=== PATIENT | male | born 1980 | race Caucasian/White ===

== ENCOUNTER 2016-05-26 02:17 | Inpatient (IN) | payer MEDICARE ==
[~2016-05-26] VITALS: Ht 177.8 cm; Wt 105.8 kg
[~2016-05-26 02:17] MED LIST: DIVA500T69 PO; HALO10 PO
[2016-05-26 02:55] LABS: BASOPHILS % (AUTO) 0.1 % (0.0-2.0); EOSINOPHILS % (AUTO) 1.2 % (1.0-6.0); HEMATOCRIT 40.8 % (41-53); HEMOGLOBIN 13.4 g/dL (13.5-17.5); LYMPHOCYTES # (AUTO) 1.7 K/uL (1.0-4.8); LYMPHOCYTES % (AUTO) 15.5 % (22.0-44.0); MEAN CORPUSCULAR HEMOGLOBIN 28.9 pg (26.0-34.0); MEAN CORPUSCULAR HGB CONC 32.9 G/dL (31.0-37.0); MEAN CORPUSCULAR VOLUME 88 fL (80-100); MONOCYTES # (AUTO) 0.9 K/uL (0.1-1.0); MONOCYTES % (AUTO) 8.2 % (2.0-9.0); NEUTROPHILS # (AUTO) 8.1 K/uL (1.8-7.7); PLATELET COUNT (AUTO) 258 K/uL (150-450); RED BLOOD CELL COUNT(AUTO) 4.64 MIL/uL (4.50-5.90); RED CELL DISTRIBUTION WIDTH 15.9 % (11.5-14.5); WHITE BLOOD COUNT (AUTO) 10.8 K/uL (4.5-11.0)
[2016-05-26 03:01] LABS: ANION GAP 10 mmol/L (8-16); CALCIUM, TOTAL 8.5 mg/dL (8.8-10.5); CARBON DIOXIDE 27 mmol/L (22-29); CHLORIDE 105 mmol/L (98-107); CREATININE 0.98 mg/dL (0.60-1.30); GLOMERULAR FILTR. RATE CALC > 60 mL/min (>60); POTASSIUM 3.6 mmol/L (3.5-5.1); SODIUM SERUM 142 mmol/L (136-145); UREA NITROGEN, BLOOD 16 mg/dL (7-18)
[2016-05-26 03:07] LABS: ALANINE AMINOTRANSFERASE 14 U/L (12-78); ALBUMIN 3.6 g/dL (3.4-5.0); ASPARTATE AMINOTRANSFERASE 11 U/L (15-37); BILIRUBIN,TOTAL 0.2 mg/dL (0.1-1.0); TOTAL PROTEIN, SERUM 7.2 g/dL (6.4-8.2); VALPROIC ACID 73 mcg/mL (50-100)
[2016-05-26] MEDS ORDERED: LORazepam 2 MG/ML VIAL ONE (04:56)
[2016-05-26] MEDS ORDERED: DiphenhydrAMINE HCL 50 MG/ML VIAL ONE (04:57)
[2016-05-26] MEDS ORDERED: HALOPERIDOL LACTATE 5 MG/ML VIAL ONE (04:58)
[2016-05-26] MEDS ORDERED: HALOPERIDOL LACTATE 5 MG/ML VIAL IM ONE (05:00)
[2016-05-26] MEDS ORDERED: LORazepam 2 MG/ML VIAL IM ONE (05:00)
[2016-05-26] MEDS ORDERED: DiphenhydrAMINE HCL 50 MG/ML VIAL IM ONE (05:00)
[2016-05-26] MEDS ORDERED: ZOLPIDEM TARTRATE 10 MG TABLET PO PRN (06:45)
[2016-05-26] MEDS ORDERED: HALOPERIDOL 5 MG TABLET PO PRN (06:45)
[2016-05-26 10:52] LABS: APPEARANCE,URINE HAZY (CLEAR); GLUCOSE, URINE (UA) NEGATIVE (NEGATIVE); KETONES,URINE NEGATIVE (NEGATIVE); OCCULT BLOOD,URINE NEGATIVE (NEGATIVE); PROTEIN,URINE NEGATIVE (NEGATIVE)
[2016-05-26 10:53] LABS: ADD UA MICROSCOPIC YES; LEUKOCYTE ESTERASE ,URINE SMALL (NEGATIVE); RBC,URINE None Seen /HPF (0-2)
[2016-05-26 10:54] LABS: SQUAMOUS EPITHELIAL CELL,UR Few /LPF (None Seen)
[2016-05-26 13:13] VITALS: BP 110/70
[2016-05-26] MEDS ORDERED: INFLUENZA VIRUS VACCINE QVS 2016-17 (3YR+)/PF 60 MCG/0.5 ML SYRINGE IM ONE (14:45)
[2016-05-26 16:45] VITALS: BP 103/63
[2016-05-27 06:35] VITALS: BP 109/69
[2016-05-27 08:47] VITALS: BP 106/61
[2016-05-27] MEDS ORDERED: LOPERAMIDE HCL 2 MG CAPSULE PO PRN (09:00)
[2016-05-27] MEDS ORDERED: ONDANSETRON HCL 4 MG TABLET PO PRN (09:00)
[2016-05-27] MEDS ORDERED: ACETAMINOPHEN 325 MG TABLET PO PRN (09:00)
[2016-05-27] MEDS ORDERED: BENZOCAINE/MENTHOL LOZENGE MM PRN (09:00)
[2016-05-27] MEDS ORDERED: ALBUTEROL SULFATE HFA 90 MCG/PUFF 8 GM INHALER IH PRN (09:00)
[2016-05-27] MEDS ORDERED: MAGNESIUM HYDROXIDE SUSPENSION 30 ML UDCUP PO PRN (09:00)
[2016-05-27] MEDS ORDERED: CloNIDine HCL 0.1 MG TABLET PO PRN (09:00)
[2016-05-27] MEDS ORDERED: PETROLATUM,WHITE 71 GM JELLY TP PRN (09:00)
[2016-05-27] MEDS ORDERED: MAG HYDROX/AL HYDROX/SIMETH ES 30 ML SUSPENSION UDCUP PO PRN (09:00)
[2016-05-27] MEDS ORDERED: BACITRACIN 28.4 GM OINTMENT TP PRN (09:00)
[2016-05-27] MEDS ORDERED: IBUPROFEN 600 MG TABLET PO PRN (09:00)
[2016-05-27] MEDS: CHOLECALCIFEROL (VIT D3) 1,000 UNITS TABLET PO SCH (09:20)
[2016-05-27] MEDS: BENZTROPINE MESYLATE 0.5 MG TABLET PO SCH ×2 (09:20→17:07)
[2016-05-27] MEDS: HALOPERIDOL 5 MG TABLET PO SCH ×2 (09:20→17:07)
[2016-05-27] MEDS: CIPROFLOXACIN HCL 250 MG TABLET PO SCH ×2 (15:54→17:07)
[2016-05-27 16:13] VITALS: BP 117/68
[2016-05-27] MEDS: LORazepam 2 MG TABLET PO PRN (16:26)
[2016-05-28 06:33] VITALS: BP 105/60
[2016-05-28 08:33] VITALS: BP 115/66
[2016-05-28] MEDS: CHOLECALCIFEROL (VIT D3) 1,000 UNITS TABLET PO SCH (09:02)
[2016-05-28] MEDS: CIPROFLOXACIN HCL 250 MG TABLET PO SCH ×2 (09:02→17:02)
[2016-05-28] MEDS: HALOPERIDOL 5 MG TABLET PO SCH ×2 (09:02→17:02)
[2016-05-28] MEDS: BENZTROPINE MESYLATE 0.5 MG TABLET PO SCH ×2 (09:03→17:02)
[2016-05-28 16:22] VITALS: BP 127/79
[2016-05-28] MEDS: LORazepam 2 MG TABLET PO PRN (17:02)
[2016-05-29 05:59] VITALS: BP 119/70
[2016-05-29 08:54] VITALS: BP 118/74
[2016-05-29] MEDS: BENZTROPINE MESYLATE 0.5 MG TABLET PO SCH ×2 (11:26→16:12)
[2016-05-29] MEDS: CHOLECALCIFEROL (VIT D3) 1,000 UNITS TABLET PO SCH (11:26)
[2016-05-29] MEDS: LORazepam 2 MG TABLET PO PRN ×2 (11:27→16:12)
[2016-05-29] MEDS: CIPROFLOXACIN HCL 250 MG TABLET PO SCH ×2 (11:27→16:12)
[2016-05-29] MEDS: HALOPERIDOL 5 MG TABLET PO SCH ×2 (11:27→16:12)
[2016-05-29 16:00] VITALS: BP 135/70
[2016-05-30 07:13] VITALS: BP 134/75
[2016-05-30] MEDS: HALOPERIDOL 5 MG TABLET PO SCH ×2 (08:24→17:27)
[2016-05-30] MEDS: BENZTROPINE MESYLATE 0.5 MG TABLET PO SCH ×2 (08:24→17:26)
[2016-05-30] MEDS: CHOLECALCIFEROL (VIT D3) 1,000 UNITS TABLET PO SCH (08:24)
[2016-05-30] MEDS: LORazepam 2 MG TABLET PO PRN ×2 (08:24→17:27)
[2016-05-30 09:15] VITALS: BP 111/60
[2016-05-30] MEDS ORDERED: HALOPERIDOL DECANOATE 50 MG/ML VIAL IM ONE (15:15)
[2016-05-30] MEDS ORDERED: HydrOXYzine PAMOATE 50 MG CAPSULE PO PRN (15:15)
[2016-05-30] MEDS ORDERED: GuaiFENesin/D-METHORPHAN [SUGAR-FREE] 200-20MG/10 ML SYRUP UDCUP PO PRN (15:15)
[2016-05-30 16:17] VITALS: BP 116/79
[2016-05-30] MEDS: THIAMINE HCL 100 MG TABLET PO SCH (17:26)
[2016-05-30] MEDS: DIVALPROEX SODIUM 500 MG ER TABLET PO SCH (21:11)
[2016-05-31 06:30] VITALS: BP 121/83
[2016-05-31 08:34] VITALS: BP 105/87
[2016-05-31] MEDS: HALOPERIDOL 5 MG TABLET PO SCH ×2 (09:35→17:00)
[2016-05-31] MEDS: FOLIC ACID 1 MG TABLET PO SCH (09:35)
[2016-05-31] MEDS: BENZTROPINE MESYLATE 0.5 MG TABLET PO SCH ×2 (09:35→17:00)
[2016-05-31] MEDS: THIAMINE HCL 100 MG TABLET PO SCH ×2 (09:35→17:00)
[2016-05-31] MEDS: MULTIVITAMINS WITH MINERALS, THERAPEUTIC TABLET PO SCH (09:35)
[2016-05-31] MEDS: LORazepam 2 MG TABLET PO PRN ×2 (09:35→17:00)
[2016-05-31] MEDS: CHOLECALCIFEROL (VIT D3) 1,000 UNITS TABLET PO SCH (09:36)
[2016-05-31 16:00] VITALS: BP 132/82
[2016-05-31] MEDS: DIVALPROEX SODIUM 500 MG ER TABLET PO SCH (20:47)
[2016-06-01 06:13] VITALS: BP 122/76
[2016-06-01 08:26] VITALS: BP 135/76
[2016-06-01] MEDS: BENZTROPINE MESYLATE 0.5 MG TABLET PO SCH ×2 (08:30→16:25)
[2016-06-01] MEDS: HALOPERIDOL 5 MG TABLET PO SCH ×2 (08:30→16:25)
[2016-06-01] MEDS: MULTIVITAMINS WITH MINERALS, THERAPEUTIC TABLET PO SCH (08:30)
[2016-06-01] MEDS: LORazepam 2 MG TABLET PO PRN (08:30)
[2016-06-01] MEDS: CHOLECALCIFEROL (VIT D3) 1,000 UNITS TABLET PO SCH (08:30)
[2016-06-01] MEDS: FOLIC ACID 1 MG TABLET PO SCH (08:30)
[2016-06-01] MEDS: THIAMINE HCL 100 MG TABLET PO SCH ×2 (08:30→16:25)
[2016-06-01] MEDS ORDERED: DIVA500T52 PO (13:23)
[2016-06-01] MEDS ORDERED: HALOD50I IM ×2 (13:23→16:06)
[2016-06-01] MEDS ORDERED: HALO5 PO ×2 (13:23→16:01)
[2016-06-01] MEDS ORDERED: BENZ0.5T6 PO ×2 (13:23→16:02)
[2016-06-13] MEDS ORDERED: HALOPERIDOL DECANOATE 50 MG/ML VIAL IM SCH (09:00)
== END 2016-06-01 16:30 | disposition home or self-care (01) | DRG 885 ==
LOC: EMS 02:27 → B3A 10:19
PROVIDERS: ADMIT Psychiatry & Neurology Child & Adolescent Psychiatry; ATTEND Psychiatry & Neurology Psychiatry
PROC: GZ51ZZZ Individual Psychotherapy, Behavioral (ICD-10-PCS; principal; 2016-05-26)
DX: F25.9 Schizoaffective disorder, unspecified (principal); N39.0 Urinary tract infection, site not specified; R45.851 Suicidal ideations; E66.9 Obesity, unspecified; F17.210 Nicotine dependence, cigarettes, uncomplicated; F32.9 Major depressive disorder, single episode, unspecified; G47.00 Insomnia, unspecified; I10 Essential (primary) hypertension; F12.90 Cannabis use, unspecified, uncomplicated; F15.90 Other stimulant use, unspecified, uncomplicated; Z59.0 Homelessness; Z91.5 Personal history of self-harm; Z71.6 Tobacco abuse counseling; Z28.21 Immunization not carried out because of patient refusal; Z79.899 Other long term (current) drug therapy; Z68.33 Body mass index [BMI] 33.0-33.9, adult
CPT/HCPCS: 87086; 96372; 99285; G0480; J1200; J1630; J1631; J2060

== ENCOUNTER 2016-06-02 18:38 | Inpatient (IN) | payer MEDICARE ==
[~2016-06-02] VITALS: Ht 175.3 cm; Wt 104.0 kg
[~2016-06-02 18:38] MED LIST changes: +BENZ0.5T6 PO; +DIVA500T52 PO; -HALO10 PO; +HALO5 PO; +HALOD50I IM
[2016-06-02 19:50] LABS: BASOPHILS % (AUTO) 0.3 % (0.0-2.0); EOSINOPHILS % (AUTO) 1.1 % (1.0-6.0); HEMATOCRIT 41.9 % (41-53); HEMOGLOBIN 13.6 g/dL (13.5-17.5); LYMPHOCYTES % (AUTO) 15.3 % (22.0-44.0); MEAN CORPUSCULAR HGB CONC 32.5 G/dL (31.0-37.0); MEAN CORPUSCULAR VOLUME 89 fL (80-100); MONOCYTES # (AUTO) 1.3 K/uL (0.1-1.0); MONOCYTES % (AUTO) 10.5 % (2.0-9.0); NEUTROPHILS # (AUTO) 9.3 K/uL (1.8-7.7); NEUTROPHILS % (AUTO) 72.8 % (40.0-70.0); PLATELET COUNT (AUTO) 259 K/uL (150-450); RED CELL DISTRIBUTION WIDTH 15.6 % (11.5-14.5); WHITE BLOOD COUNT (AUTO) 12.7 K/uL (4.5-11.0)
[2016-06-02 19:59] LABS: ANION GAP 9 mmol/L (8-16); CALCIUM, TOTAL 8.1 mg/dL (8.8-10.5); CARBON DIOXIDE 29 mmol/L (22-29); CHLORIDE 101 mmol/L (98-107); CREATININE 0.95 mg/dL (0.60-1.30); GLOMERULAR FILTR. RATE CALC > 60 mL/min (>60); POTASSIUM 3.8 mmol/L (3.5-5.1); SODIUM SERUM 139 mmol/L (136-145); UREA NITROGEN, BLOOD 13 mg/dL (7-18)
[2016-06-02 20:08] LABS: ALANINE AMINOTRANSFERASE 18 U/L (12-78); ALBUMIN 3.9 g/dL (3.4-5.0); ASPARTATE AMINOTRANSFERASE 14 U/L (15-37); BILIRUBIN,TOTAL 0.6 mg/dL (0.1-1.0); TOTAL PROTEIN, SERUM 7.6 g/dL (6.4-8.2); VALPROIC ACID 35 mcg/mL (50-100)
[2016-06-02] MEDS ORDERED: ZOLPIDEM TARTRATE 10 MG TABLET PO PRN (21:00)
[2016-06-02] MEDS ORDERED: HALOPERIDOL 5 MG TABLET PO PRN (21:00)
[2016-06-02] MEDS ORDERED: LORazepam 2 MG/ML VIAL ONE (21:11)
[2016-06-02] MEDS ORDERED: HALOPERIDOL LACTATE 5 MG/ML VIAL ONE (21:11)
[2016-06-02] MEDS ORDERED: DiphenhydrAMINE HCL 50 MG/ML VIAL ONE (21:11)
[2016-06-02] MEDS ORDERED: LORazepam 2 MG/ML VIAL IM ONE (21:15)
[2016-06-02] MEDS ORDERED: HALOPERIDOL LACTATE 5 MG/ML VIAL IM ONE (21:15)
[2016-06-02] MEDS ORDERED: DiphenhydrAMINE HCL 50 MG/ML VIAL IM ONE (21:15)
[2016-06-03 00:05] VITALS: BP 102/64
[2016-06-03] MEDS ORDERED: INFLUENZA VIRUS VACCINE QVS 2016-17 (3YR+)/PF 60 MCG/0.5 ML SYRINGE IM ONE (00:30)
[2016-06-03 08:30] VITALS: BP 105/65
[2016-06-03] MEDS ORDERED: MAG HYDROX/AL HYDROX/SIMETH ES 30 ML SUSPENSION UDCUP PO PRN (15:00)
[2016-06-03] MEDS ORDERED: LOPERAMIDE HCL 2 MG CAPSULE PO PRN (15:00)
[2016-06-03] MEDS ORDERED: BACITRACIN 28.4 GM OINTMENT TP PRN (15:00)
[2016-06-03] MEDS ORDERED: MAGNESIUM HYDROXIDE SUSPENSION 30 ML UDCUP PO PRN (15:00)
[2016-06-03] MEDS ORDERED: ONDANSETRON HCL 4 MG TABLET PO PRN (15:00)
[2016-06-03] MEDS ORDERED: BENZOCAINE/MENTHOL LOZENGE MM PRN (15:00)
[2016-06-03] MEDS ORDERED: PETROLATUM,WHITE 71 GM JELLY TP PRN (15:00)
[2016-06-03] MEDS ORDERED: IBUPROFEN 600 MG TABLET PO PRN (15:00)
[2016-06-03] MEDS ORDERED: ALBUTEROL SULFATE HFA 90 MCG/PUFF 8 GM INHALER IH PRN (15:00)
[2016-06-03] MEDS ORDERED: ACETAMINOPHEN 325 MG TABLET PO PRN (15:00)
[2016-06-03] MEDS ORDERED: CloNIDine HCL 0.1 MG TABLET PO PRN (15:00)
[2016-06-03 16:00] VITALS: BP 112/70
[2016-06-03] MEDS: LORazepam 2 MG TABLET PO PRN (17:16)
[2016-06-03] MEDS: BENZTROPINE MESYLATE 0.5 MG TABLET PO SCH (17:16)
[2016-06-03] MEDS: HALOPERIDOL 5 MG TABLET PO SCH (17:16)
[2016-06-03] MEDS: DIVALPROEX SODIUM 500 MG ER TABLET PO SCH (20:44)
[2016-06-04 06:36] VITALS: BP 110/68
[2016-06-04 08:39] VITALS: BP 105/65
[2016-06-04] MEDS: LORazepam 2 MG TABLET PO PRN ×2 (09:18→17:04)
[2016-06-04] MEDS: HALOPERIDOL 5 MG TABLET PO SCH ×2 (09:18→17:04)
[2016-06-04] MEDS: BENZTROPINE MESYLATE 0.5 MG TABLET PO SCH ×2 (09:18→17:04)
[2016-06-04 16:20] VITALS: BP 110/68
[2016-06-04] MEDS: DIVALPROEX SODIUM 500 MG ER TABLET PO SCH (21:23)
[2016-06-05 06:35] VITALS: BP 120/67
[2016-06-05] MEDS: BENZTROPINE MESYLATE 0.5 MG TABLET PO SCH ×2 (09:04→17:43)
[2016-06-05] MEDS: HALOPERIDOL 5 MG TABLET PO SCH ×2 (09:04→17:43)
[2016-06-05] MEDS: LORazepam 2 MG TABLET PO PRN ×2 (09:04→17:44)
[2016-06-05 09:46] VITALS: BP 105/62
[2016-06-05] MEDS ORDERED: HydrOXYzine PAMOATE 50 MG CAPSULE PO PRN (10:45)
[2016-06-05] MEDS ORDERED: GuaiFENesin/D-METHORPHAN [SUGAR-FREE] 200-20MG/10 ML SYRUP UDCUP PO PRN (10:45)
[2016-06-05 16:34] VITALS: BP 116/69
[2016-06-05] MEDS: THIAMINE HCL 100 MG TABLET PO SCH (17:44)
[2016-06-05] MEDS: DIVALPROEX SODIUM 500 MG ER TABLET PO SCH (22:10)
[2016-06-06 06:21] VITALS: BP 110/58
[2016-06-06] MEDS: FOLIC ACID 1 MG TABLET PO SCH (08:51)
[2016-06-06] MEDS: MULTIVITAMINS WITH MINERALS, THERAPEUTIC TABLET PO SCH (08:51)
[2016-06-06] MEDS: BENZTROPINE MESYLATE 0.5 MG TABLET PO SCH ×2 (08:52→16:46)
[2016-06-06] MEDS: HALOPERIDOL 5 MG TABLET PO SCH ×2 (08:52→16:46)
[2016-06-06] MEDS: THIAMINE HCL 100 MG TABLET PO SCH ×2 (08:52→16:46)
[2016-06-06 09:36] VITALS: BP 101/63
[2016-06-06] MEDS ORDERED: DIVA500T52 PO (16:01)
[2016-06-06] MEDS ORDERED: BENZ0.5T6 PO (16:01)
[2016-06-06] MEDS ORDERED: HALOD50I IM (16:01)
[2016-06-06] MEDS ORDERED: HALO5 PO (16:01)
[2016-06-06 16:07] VITALS: BP 122/74
[2016-06-06] MEDS: DIVALPROEX SODIUM 500 MG ER TABLET PO SCH (20:27)
[2016-06-07 07:03] VITALS: BP 108/72
[2016-06-07 08:20] VITALS: BP 121/70
[2016-06-07] MEDS: FOLIC ACID 1 MG TABLET PO SCH (09:59)
[2016-06-07] MEDS: THIAMINE HCL 100 MG TABLET PO SCH (09:59)
[2016-06-07] MEDS: HALOPERIDOL 5 MG TABLET PO SCH (09:59)
[2016-06-07] MEDS: MULTIVITAMINS WITH MINERALS, THERAPEUTIC TABLET PO SCH (09:59)
[2016-06-07] MEDS: BENZTROPINE MESYLATE 0.5 MG TABLET PO SCH (09:59)
[2016-06-07] MEDS ORDERED: NALT50 PO (10:20)
[2016-06-08] MEDS ORDERED: NALTREXONE HCL 50 MG TABLET PO SCH (09:00)
[2016-06-13] MEDS ORDERED: HALOPERIDOL DECANOATE 50 MG/ML VIAL IM SCH (09:00)
== END 2016-06-07 13:35 | disposition home or self-care (01) | DRG 885 ==
LOC: EMS 18:52 → B3A 21:15
PROVIDERS: ADMIT Psychiatry & Neurology Child & Adolescent Psychiatry; ATTEND Psychiatry & Neurology Psychiatry
PROC: GZ51ZZZ Individual Psychotherapy, Behavioral (ICD-10-PCS; principal; 2016-06-02)
DX: F25.1 Schizoaffective disorder, depressive type (principal); I10 Essential (primary) hypertension; G47.00 Insomnia, unspecified; K59.00 Constipation, unspecified; E55.9 Vitamin D deficiency, unspecified; F19.10 Other psychoactive substance abuse, uncomplicated; F14.10 Cocaine abuse, uncomplicated; F15.10 Other stimulant abuse, uncomplicated; F17.210 Nicotine dependence, cigarettes, uncomplicated; Z71.6 Tobacco abuse counseling; Z79.899 Other long term (current) drug therapy; Z28.21 Immunization not carried out because of patient refusal
CPT/HCPCS: 80173; 82306; 87081; 96372; 99285; G0480; J1200; J1630; J2060

== ENCOUNTER 2016-12-09 05:28 | Inpatient (IN) | payer MEDICARE ==
[~2016-12-09] VITALS: Ht 175.3 cm; Wt 108.9 kg
[~2016-12-09 05:28] MED LIST changes: -DIVA500T69 PO; +NALT50TA6 PO
[2016-12-09] MEDS ORDERED: OLAN10TA3 PO (05:42)
[2016-12-09 06:13] LABS: BASOPHILS # (AUTO) 0.02 K/uL (0.00-0.20); BASOPHILS % (AUTO) 0.2 % (0.0-2.0); EOSINOPHILS # (AUTO) 0.07 K/uL (0.00-0.70); EOSINOPHILS % (AUTO) 0.44 % (1.0-6.0); HEMATOCRIT 38.4 % (41-53); LYMPHOCYTES # (AUTO) 1.4 K/uL (1.0-4.8); LYMPHOCYTES % (AUTO) 9.4 % (22.0-44.0); MEAN CORPUSCULAR HEMOGLOBIN 30.3 pg (26.0-34.0); MEAN CORPUSCULAR HGB CONC 33.9 G/dL (31.0-37.0); MEAN CORPUSCULAR VOLUME 89 fL (80-100); MONOCYTES # (AUTO) 1.5 K/uL (0.1-1.0); MONOCYTES % (AUTO) 9.9 % (2.0-9.0); NEUTROPHILS # (AUTO) 12.2 K/uL (1.8-7.7); NEUTROPHILS % (AUTO) 80.1 % (40.0-70.0); PLATELET COUNT (AUTO) 233 K/uL (150-450); RED CELL DISTRIBUTION WIDTH 13.8 % (11.5-14.5); WHITE BLOOD COUNT (AUTO) 15.3 K/uL (4.5-11.0)
[2016-12-09 06:22] LABS: ANION GAP 10 mmol/L (8-16); CALCIUM, TOTAL 8.9 mg/dL (8.8-10.5); CARBON DIOXIDE 27 mmol/L (22-29); CHLORIDE 104 mmol/L (98-107); CREATININE 0.92 mg/dL (0.60-1.30); GLOMERULAR FILTR. RATE CALC > 60 mL/min (>60); POTASSIUM 3.9 mmol/L (3.5-5.1); SODIUM SERUM 141 mmol/L (136-145); UREA NITROGEN, BLOOD 17 mg/dL (7-18)
[2016-12-09 06:28] LABS: ALANINE AMINOTRANSFERASE 20 U/L (12-78); ALBUMIN 3.9 g/dL (3.4-5.0); ASPARTATE AMINOTRANSFERASE 23 U/L (15-37); BILIRUBIN,TOTAL 0.6 mg/dL (0.1-1.0); TOTAL PROTEIN, SERUM 7.7 g/dL (6.4-8.2)
[2016-12-09] MEDS ORDERED: LORazepam 2 MG TABLET PO ONE (12:00)
[2016-12-09] MEDS ORDERED: HALOPERIDOL LACTATE 5 MG/ML VIAL IM ONE (12:00)
[2016-12-09] MEDS ORDERED: HALOPERIDOL 5 MG TABLET PO PRN (12:00)
[2016-12-09] MEDS ORDERED: ZOLPIDEM TARTRATE 10 MG TABLET PO PRN (12:00)
[2016-12-09] MEDS ORDERED: HALOPERIDOL 5 MG TABLET PO ONE (12:15)
[2016-12-09] MEDS: BENZTROPINE MESYLATE 0.5 MG TABLET PO SCH (21:00)
[2016-12-09] MEDS: HALOPERIDOL 5 MG TABLET PO SCH (21:00)
[2016-12-10] MEDS: DIVALPROEX SODIUM 500 MG ER TABLET PO SCH ×2 (07:19→21:07)
[2016-12-10] MEDS: BENZTROPINE MESYLATE 0.5 MG TABLET PO SCH ×2 (08:14→21:07)
[2016-12-10] MEDS: HALOPERIDOL 5 MG TABLET PO SCH ×2 (08:15→21:07)
[2016-12-10 22:20] VITALS: BP 129/81
[2016-12-11] MEDS ORDERED: -PHARMACY VACCINE NOTE- MISC ONE ×2 (02:00)
[2016-12-11 06:46] VITALS: BP 114/66
[2016-12-11 08:18] VITALS: BP 100/58
[2016-12-11] MEDS ORDERED: MAGNESIUM HYDROXIDE SUSPENSION 30 ML UDCUP PO PRN (09:30)
[2016-12-11] MEDS ORDERED: CloNIDine HCL 0.1 MG TABLET PO PRN (09:30)
[2016-12-11] MEDS ORDERED: ALBUTEROL SULFATE HFA 90 MCG/PUFF 8 GM INHALER IH PRN (09:30)
[2016-12-11] MEDS ORDERED: ACETAMINOPHEN 325 MG TABLET PO PRN (09:30)
[2016-12-11] MEDS ORDERED: LOPERAMIDE HCL 2 MG CAPSULE PO PRN (09:30)
[2016-12-11] MEDS ORDERED: BENZOCAINE/MENTHOL LOZENGE MM PRN (09:30)
[2016-12-11] MEDS ORDERED: BACITRACIN 28.4 GM OINTMENT TP PRN (09:30)
[2016-12-11] MEDS ORDERED: PETROLATUM,WHITE 71 GM JELLY TP PRN (09:30)
[2016-12-11] MEDS ORDERED: ONDANSETRON HCL 4 MG TABLET PO PRN (09:30)
[2016-12-11] MEDS ORDERED: MAG HYDROX/AL HYDROX/SIMETH ES 30 ML SUSPENSION UDCUP PO PRN (09:30)
[2016-12-11] MEDS ORDERED: IBUPROFEN 600 MG TABLET PO PRN (09:30)
[2016-12-11] MEDS: NICOTINE 21 MG/24 HOUR PATCH TD SCH (09:55)
[2016-12-11] MEDS: HALOPERIDOL 5 MG TABLET PO SCH (09:56)
[2016-12-11] MEDS: BENZTROPINE MESYLATE 0.5 MG TABLET PO SCH (09:56)
[2016-12-11] MEDS: LORazepam 2 MG TABLET PO PRN ×2 (09:56→16:19)
[2016-12-11 16:00] VITALS: BP 117/80
[2016-12-11] MEDS ORDERED: PALIPERIDONE 3 MG ER TABLET PO PRN (16:00)
[2016-12-11] MEDS: DIVALPROEX SODIUM 500 MG ER TABLET PO SCH (20:44)
[2016-12-11] MEDS ORDERED: PALIPERIDONE 3 MG ER TABLET PO SCH (21:00)
[2016-12-11] MEDS ORDERED: PALIPERIDONE PALMITATE 234 MG/1.5 ML SYRINGE IM ONE (21:00)
[2016-12-12 06:26] VITALS: BP 115/68
[2016-12-12 08:16] VITALS: BP 105/58
[2016-12-12 08:18] LABS: BASOPHILS % (AUTO) 0.2 % (0.0-2.0); EOSINOPHILS % (AUTO) 3.6 % (1.0-6.0); HEMATOCRIT 39.9 % (41-53); HEMOGLOBIN 13.6 g/dL (13.5-17.5); LYMPHOCYTES # (AUTO) 2.1 K/uL (1.0-4.8); LYMPHOCYTES % (AUTO) 22.6 % (22.0-44.0); MEAN CORPUSCULAR HEMOGLOBIN 30.6 pg (26.0-34.0); MEAN CORPUSCULAR HGB CONC 34.2 G/dL (31.0-37.0); MEAN CORPUSCULAR VOLUME 89 fL (80-100); MONOCYTES # (AUTO) 1.1 K/uL (0.1-1.0); MONOCYTES % (AUTO) 11.6 % (2.0-9.0); NEUTROPHILS # (AUTO) 5.8 K/uL (1.8-7.7); PLATELET COUNT (AUTO) 247 K/uL (150-450); RED BLOOD CELL COUNT(AUTO) 4.46 MIL/uL (4.50-5.90); RED CELL DISTRIBUTION WIDTH 13.6 % (11.5-14.5); WHITE BLOOD COUNT (AUTO) 9.3 K/uL (4.5-11.0)
[2016-12-12 08:42] LABS: CHOL/HDL RATIO 3.1 (4.2-7.3); THYROID STIMULATING HORMONE 2.1 uIU/mL (0.36-3.74)
[2016-12-12] MEDS: NICOTINE 21 MG/24 HOUR PATCH TD SCH (09:00)
[2016-12-12] MEDS: LORazepam 2 MG TABLET PO PRN ×2 (09:59→16:57)
[2016-12-12] MEDS: NALTREXONE HCL 50 MG TABLET PO SCH (10:00)
[2016-12-12 16:00] VITALS: BP 119/71
[2016-12-12] MEDS: DIVALPROEX SODIUM 500 MG ER TABLET PO SCH (20:13)
[2016-12-13 06:30] VITALS: BP 108/69
[2016-12-13 07:24] VITALS: BP 110/72
[2016-12-13 08:37] VITALS: BP 127/72
[2016-12-13] MEDS: NALTREXONE HCL 50 MG TABLET PO SCH (09:35)
[2016-12-13] MEDS: NICOTINE 21 MG/24 HOUR PATCH TD SCH (09:35)
[2016-12-13] MEDS: LORazepam 2 MG TABLET PO PRN (09:39)
[2016-12-13] MEDS ORDERED: ONDANSETRON HCL 4 MG TABLET PO PRN (15:15)
[2016-12-13 16:00] VITALS: BP 124/70
[2016-12-13] MEDS ORDERED: ONDANSETRON HCL 4 MG/2 ML VIAL IM PRN (18:30)
[2016-12-13] MEDS ORDERED: PROMETHAZINE HCL 25 MG/ML VIAL IM ONE (19:30)
[2016-12-13] MEDS: DIVALPROEX SODIUM 500 MG ER TABLET PO SCH (20:26)
[2016-12-14 06:34] VITALS: BP 122/71
[2016-12-14 08:00] VITALS: BP 121/74
[2016-12-14 08:44] LABS: BASOPHILS % (AUTO) 0.3 % (0.0-2.0); EOSINOPHILS % (AUTO) 0.7 % (1.0-6.0); HEMATOCRIT 40.3 % (41-53); HEMOGLOBIN 13.6 g/dL (13.5-17.5); LYMPHOCYTES % (AUTO) 22.6 % (22.0-44.0); MEAN CORPUSCULAR HEMOGLOBIN 30.1 pg (26.0-34.0); MEAN CORPUSCULAR HGB CONC 33.6 G/dL (31.0-37.0); MEAN CORPUSCULAR VOLUME 90 fL (80-100); MONOCYTES # (AUTO) 0.7 K/uL (0.1-1.0); MONOCYTES % (AUTO) 7.9 % (2.0-9.0); NEUTROPHILS % (AUTO) 68.5 % (40.0-70.0); PLATELET COUNT (AUTO) 284 K/uL (150-450); RED CELL DISTRIBUTION WIDTH 13.7 % (11.5-14.5); WHITE BLOOD COUNT (AUTO) 8.8 K/uL (4.5-11.0)
[2016-12-14 09:03] LABS: ALANINE AMINOTRANSFERASE 17 U/L (12-78); ALBUMIN 3.6 g/dL (3.4-5.0); ANION GAP 7 mmol/L (8-16); ASPARTATE AMINOTRANSFERASE 12 U/L (15-37); BILIRUBIN,TOTAL 0.3 mg/dL (0.1-1.0); CALCIUM, TOTAL 8.8 mg/dL (8.8-10.5); CARBON DIOXIDE 32 mmol/L (22-29); CHLORIDE 102 mmol/L (98-107); CREATININE 1.01 mg/dL (0.60-1.30); GLOMERULAR FILTR. RATE CALC > 60 mL/min (>60); PHOSPHORUS 3.6 mg/dL (2.5-4.9); POTASSIUM 4.1 mmol/L (3.5-5.1); SODIUM SERUM 141 mmol/L (136-145); TOTAL PROTEIN, SERUM 7.3 g/dL (6.4-8.2); UREA NITROGEN, BLOOD 18 mg/dL (7-18); VALPROIC ACID 44 mcg/mL (50-100)
[2016-12-14] MEDS: LORazepam 2 MG TABLET PO PRN (09:08)
[2016-12-14] MEDS: NALTREXONE HCL 50 MG TABLET PO SCH (09:08)
[2016-12-14] MEDS: NICOTINE 21 MG/24 HOUR PATCH TD SCH (09:09)
[2016-12-14] MEDS ORDERED: NALT50TA PO (15:48)
[2016-12-14] MEDS ORDERED: PALI234D IM (15:48)
[2016-12-14] MEDS ORDERED: DIVA500T52 PO (15:48)
[2016-12-14 16:00] VITALS: BP 124/78
[2016-12-14] MEDS: DIVALPROEX SODIUM 500 MG ER TABLET PO SCH (20:09)
[2016-12-15 06:27] VITALS: BP 122/72
[2016-12-15 08:45] VITALS: BP 117/67
[2016-12-15] MEDS ORDERED: PALIPERIDONE PALMITATE 156 MG/ML SYRINGE IM ONE (09:00)
[2016-12-15] MEDS: NICOTINE 21 MG/24 HOUR PATCH TD SCH (09:42)
[2016-12-15] MEDS: LORazepam 2 MG TABLET PO PRN ×2 (09:42→20:31)
[2016-12-15] MEDS: NALTREXONE HCL 50 MG TABLET PO SCH (09:42)
[2016-12-15 16:00] VITALS: BP 135/82
[2016-12-15] MEDS: DIVALPROEX SODIUM 500 MG ER TABLET PO SCH (20:30)
[2016-12-16 06:52] VITALS: BP 122/79
[2016-12-16 08:44] VITALS: BP 100/56
[2016-12-16] MEDS: NALTREXONE HCL 50 MG TABLET PO SCH (09:57)
[2016-12-16] MEDS: LORazepam 2 MG TABLET PO PRN ×2 (09:57→16:54)
[2016-12-16] MEDS: NICOTINE 21 MG/24 HOUR PATCH TD SCH (09:57)
[2016-12-16 16:36] VITALS: BP 125/74
[2016-12-16] MEDS: DIVALPROEX SODIUM 500 MG ER TABLET PO SCH (20:16)
[2016-12-17 06:42] VITALS: BP 128/62
[2016-12-17] MEDS: NALTREXONE HCL 50 MG TABLET PO SCH (08:45)
[2016-12-17] MEDS: NICOTINE 21 MG/24 HOUR PATCH TD SCH (08:47)
== END 2016-12-17 09:28 | disposition home or self-care (01) | DRG 885 ==
LOC: EMS 05:30 → B3A 12-10 21:27
PROVIDERS: ADMIT Psychiatry & Neurology Child & Adolescent Psychiatry; ATTEND Psychiatry & Neurology Psychiatry
DX: F25.0 Schizoaffective disorder, bipolar type (principal); F22 Delusional disorders; R45.851 Suicidal ideations; I10 Essential (primary) hypertension; E55.9 Vitamin D deficiency, unspecified; D72.829 Elevated white blood cell count, unspecified; E66.9 Obesity, unspecified; F12.90 Cannabis use, unspecified, uncomplicated; F15.10 Other stimulant abuse, uncomplicated; F17.200 Nicotine dependence, unspecified, uncomplicated; Z71.6 Tobacco abuse counseling; G47.00 Insomnia, unspecified; Z91.19 Patient's noncompliance with other medical treatment and regimen
CPT/HCPCS: 82306; 83735; 84100; 84443; 87081; 99285; G0480; J2405; J2550; Q0162

== ENCOUNTER 2017-01-11 03:24 | Inpatient (IN) | payer MEDICARE ==
[~2017-01-11] VITALS: Ht 175.3 cm; Wt 115.0 kg
[~2017-01-11 03:24] MED LIST changes: -BENZ0.5T6 PO; -HALO5 PO; -HALOD50I IM; +NALT50TA PO; -NALT50TA6 PO; +PALI234D IM
[2017-01-11 04:18] LABS: AMPHET/METH SCREEN,URINE NEGATIVE (NEGATIVE); BARBITURATE SCREEN, URINE NEGATIVE (NEGATIVE); BENZODIAZEPINES SCREEN,URINE NEGATIVE (NEGATIVE); CANNABINOID SCREEN,URINE NEGATIVE (NEGATIVE); COCAINE SCREEN,URINE NEGATIVE (NEGATIVE); METHADONE SCREEN, URINE NEGATIVE (NEGATIVE); OPIATE SCREEN,URINE NEGATIVE (NEGATIVE)
[2017-01-11 04:19] LABS: BASOPHILS # (AUTO) 0.01 K/uL (0.00-0.20); BASOPHILS % (AUTO) 0.1 % (0.0-2.0); EOSINOPHILS # (AUTO) 0.15 K/uL (0.00-0.70); HEMATOCRIT 41.8 % (41-53); HEMOGLOBIN 13.9 g/dL (13.5-17.5); LYMPHOCYTES # (AUTO) 1.9 K/uL (1.0-4.8); LYMPHOCYTES % (AUTO) 17.7 % (22.0-44.0); MEAN CORPUSCULAR HEMOGLOBIN 29.9 pg (26.0-34.0); MEAN CORPUSCULAR HGB CONC 33.4 G/dL (31.0-37.0); MEAN CORPUSCULAR VOLUME 90 fL (80-100); MONOCYTES % (AUTO) 9.9 % (2.0-9.0); NEUTROPHILS # (AUTO) 7.4 K/uL (1.8-7.7); NEUTROPHILS % (AUTO) 70.9 % (40.0-70.0); PLATELET COUNT (AUTO) 232 K/uL (150-450); RED BLOOD CELL COUNT(AUTO) 4.66 MIL/uL (4.50-5.90); RED CELL DISTRIBUTION WIDTH 14.7 % (11.5-14.5)
[2017-01-11 04:20] LABS: PHENCYCLIDINE SCREEN,URINE NEGATIVE (NEGATIVE)
[2017-01-11 04:28] LABS: ANION GAP 7 mmol/L (8-16); CALCIUM, TOTAL 8.7 mg/dL (8.8-10.5); CARBON DIOXIDE 30 mmol/L (22-29); CHLORIDE 101 mmol/L (98-107); CREATININE 0.98 mg/dL (0.60-1.30); GLOMERULAR FILTR. RATE CALC > 60 mL/min (>60); GLUCOSE,RANDOM 110 mg/dL (70-110); POTASSIUM 3.7 mmol/L (3.5-5.1); SODIUM SERUM 138 mmol/L (136-145); UREA NITROGEN, BLOOD 11 mg/dL (7-18)
[2017-01-11] MEDS ORDERED: HALOPERIDOL 5 MG TABLET PO PRN (04:30)
[2017-01-11 04:33] LABS: ALANINE AMINOTRANSFERASE 25 U/L (12-78); ALBUMIN 3.8 g/dL (3.4-5.0); ALKALINE PHOSPHATASE 75 U/L (46-116); ASPARTATE AMINOTRANSFERASE 25 U/L (15-37); BILIRUBIN,TOTAL 0.5 mg/dL (0.1-1.0); TOTAL PROTEIN, SERUM 7.5 g/dL (6.4-8.2)
[2017-01-11] MEDS ORDERED: INFLUENZA VIRUS VACCINE QVS 2017-18 (3YR+)/PF 60 MCG/0.5 ML SYRINGE IM ONE (06:30)
[2017-01-11 07:21] VITALS: BP 114/72
[2017-01-11] MEDS ORDERED: CloNIDine HCL 0.1 MG TABLET PO PRN (07:30)
[2017-01-11] MEDS ORDERED: IBUPROFEN 600 MG TABLET PO PRN (07:30)
[2017-01-11] MEDS ORDERED: BENZOCAINE/MENTHOL LOZENGE MM PRN (07:30)
[2017-01-11] MEDS ORDERED: ACETAMINOPHEN 325 MG TABLET PO PRN (07:30)
[2017-01-11] MEDS ORDERED: ONDANSETRON HCL 4 MG TABLET PO PRN (07:30)
[2017-01-11] MEDS ORDERED: ALBUTEROL SULFATE HFA 90 MCG/PUFF 8 GM INHALER IH PRN (07:30)
[2017-01-11] MEDS ORDERED: MAGNESIUM HYDROXIDE SUSPENSION 30 ML UDCUP PO PRN (07:30)
[2017-01-11] MEDS ORDERED: LOPERAMIDE HCL 2 MG CAPSULE PO PRN ×2 (07:30→12:15)
[2017-01-11] MEDS ORDERED: MAG HYDROX/AL HYDROX/SIMETH ES 30 ML SUSPENSION UDCUP PO PRN (07:30)
[2017-01-11] MEDS ORDERED: PETROLATUM,WHITE 71 GM JELLY TP PRN (07:30)
[2017-01-11] MEDS ORDERED: BACITRACIN 28.4 GM OINTMENT TP PRN (07:30)
[2017-01-11 08:15] VITALS: BP 112/68
[2017-01-11] MEDS: CHOLECALCIFEROL (VIT D3) 1,000 UNITS TABLET PO SCH (09:23)
[2017-01-11] MEDS ORDERED: GuaiFENesin/D-METHORPHAN [SUGAR-FREE] 200-20MG/10 ML SYRUP UDCUP PO PRN (12:15)
[2017-01-11] MEDS ORDERED: HydrOXYzine PAMOATE 50 MG CAPSULE PO PRN (12:15)
[2017-01-11] MEDS ORDERED: PALIPERIDONE PALMITATE 234 MG/1.5 ML SYRINGE IM ONE (16:00)
[2017-01-11 16:24] VITALS: BP 118/75
[2017-01-11] MEDS: THIAMINE HCL 100 MG TABLET PO SCH (16:33)
[2017-01-11] MEDS: DIVALPROEX SODIUM 500 MG ER TABLET PO SCH (20:31)
[2017-01-11] MEDS ORDERED: PALIPERIDONE 6 MG ER TABLET PO SCH (21:00)
[2017-01-12 06:28] VITALS: BP 118/82
[2017-01-12] MEDS: MULTIVITAMINS WITH MINERALS, THERAPEUTIC TABLET PO SCH (08:11)
[2017-01-12] MEDS: CHOLECALCIFEROL (VIT D3) 1,000 UNITS TABLET PO SCH (08:11)
[2017-01-12] MEDS: FOLIC ACID 1 MG TABLET PO SCH (08:11)
[2017-01-12] MEDS: NALTREXONE HCL 50 MG TABLET PO SCH (08:12)
[2017-01-12] MEDS: THIAMINE HCL 100 MG TABLET PO SCH ×2 (08:12→16:53)
[2017-01-12 08:14] VITALS: BP 108/66
[2017-01-12 10:12] LABS: CHOL/HDL RATIO 3.1 (4.2-7.3); FREE T4 (FREE THYROXINE) 0.95 ng/dL (0.76-1.46); THYROID STIMULATING HORMONE 0.84 uIU/mL (0.36-3.74)
[2017-01-12 16:00] VITALS: BP 112/68
[2017-01-12] MEDS: PALIPERIDONE 3 MG ER TABLET PO PRN (16:53)
[2017-01-12] MEDS: LORazepam 2 MG TABLET PO PRN (16:53)
[2017-01-12] MEDS: ZOLPIDEM TARTRATE 10 MG TABLET PO PRN (20:18)
[2017-01-12] MEDS: DIVALPROEX SODIUM 500 MG ER TABLET PO SCH (20:18)
[2017-01-13 06:34] VITALS: BP 118/79
[2017-01-13 08:06] VITALS: BP 100/60
[2017-01-13] MEDS: MULTIVITAMINS WITH MINERALS, THERAPEUTIC TABLET PO SCH (09:11)
[2017-01-13] MEDS: FOLIC ACID 1 MG TABLET PO SCH (09:11)
[2017-01-13] MEDS: THIAMINE HCL 100 MG TABLET PO SCH ×2 (09:11→17:01)
[2017-01-13] MEDS: NALTREXONE HCL 50 MG TABLET PO SCH (09:11)
[2017-01-13] MEDS: CHOLECALCIFEROL (VIT D3) 1,000 UNITS TABLET PO SCH (09:11)
[2017-01-13] MEDS: LORazepam 2 MG TABLET PO PRN (09:12)
[2017-01-13 16:12] VITALS: BP 119/75
[2017-01-13] MEDS: DIVALPROEX SODIUM 500 MG ER TABLET PO SCH (20:45)
[2017-01-13] MEDS: ZOLPIDEM TARTRATE 10 MG TABLET PO PRN (20:45)
[2017-01-14 06:26] VITALS: BP 125/82
[2017-01-14 08:47] VITALS: BP 127/70
[2017-01-14] MEDS: THIAMINE HCL 100 MG TABLET PO SCH ×2 (09:03→17:06)
[2017-01-14] MEDS: FOLIC ACID 1 MG TABLET PO SCH (09:03)
[2017-01-14] MEDS: NALTREXONE HCL 50 MG TABLET PO SCH (09:03)
[2017-01-14] MEDS: CHOLECALCIFEROL (VIT D3) 1,000 UNITS TABLET PO SCH (09:03)
[2017-01-14] MEDS: MULTIVITAMINS WITH MINERALS, THERAPEUTIC TABLET PO SCH (09:03)
[2017-01-14 16:27] VITALS: BP 120/74
[2017-01-14] MEDS: LORazepam 2 MG TABLET PO PRN (17:56)
[2017-01-14] MEDS: ZOLPIDEM TARTRATE 10 MG TABLET PO PRN (21:08)
[2017-01-14] MEDS: DIVALPROEX SODIUM 500 MG ER TABLET PO SCH (21:08)
[2017-01-14] MEDS: PALIPERIDONE 3 MG ER TABLET PO PRN (21:10)
[2017-01-15 06:36] VITALS: BP 117/71
[2017-01-15 08:14] VITALS: BP 105/65
[2017-01-15] MEDS: NALTREXONE HCL 50 MG TABLET PO SCH (08:52)
[2017-01-15] MEDS: MULTIVITAMINS WITH MINERALS, THERAPEUTIC TABLET PO SCH (08:52)
[2017-01-15] MEDS: CHOLECALCIFEROL (VIT D3) 1,000 UNITS TABLET PO SCH (08:52)
[2017-01-15] MEDS: FOLIC ACID 1 MG TABLET PO SCH (08:52)
[2017-01-15] MEDS: THIAMINE HCL 100 MG TABLET PO SCH ×2 (08:52→16:24)
[2017-01-15] MEDS ORDERED: NALT50TA PO (15:10)
[2017-01-15] MEDS ORDERED: DIVA500T52 PO (15:10)
[2017-01-15] MEDS ORDERED: PALI234D IM (15:10)
[2017-01-15] MEDS ORDERED: THIA100 PO (16:29)
[2017-01-15] MEDS ORDERED: VITAD1000 PO (16:30)
[2017-01-15] MEDS ORDERED: FOLI1 PO (16:34)
[2017-01-15] MEDS ORDERED: MULT-248 PO (16:34)
[2017-02-08] MEDS ORDERED: PALIPERIDONE PALMITATE 234 MG/1.5 ML SYRINGE IM SCH (09:00)
== END 2017-01-15 19:14 | disposition home or self-care (01) | DRG 885 ==
LOC: EMS 03:26 → B3A 04:44
PROVIDERS: ADMIT Psychiatry & Neurology Psychiatry; ATTEND Psychiatry & Neurology Psychiatry
DX: F25.9 Schizoaffective disorder, unspecified (principal); R45.851 Suicidal ideations; E83.51 Hypocalcemia; F32.9 Major depressive disorder, single episode, unspecified; I10 Essential (primary) hypertension; F12.10 Cannabis abuse, uncomplicated; F15.10 Other stimulant abuse, uncomplicated; F17.210 Nicotine dependence, cigarettes, uncomplicated; G47.00 Insomnia, unspecified; E66.9 Obesity, unspecified; L08.9 Local infection of the skin and subcutaneous tissue, unspecified; Z71.6 Tobacco abuse counseling; Z91.19 Patient's noncompliance with other medical treatment and regimen; Z68.38 Body mass index [BMI] 38.0-38.9, adult; Z71.51 Drug abuse counseling and surveillance of drug abuser
CPT/HCPCS: 84439; 84443; 87081; 99285; G0480

== ENCOUNTER 2017-01-16 23:02 | Inpatient (IN) | payer MEDICARE ==
[~2017-01-16] VITALS: Ht 175.3 cm; Wt 117.0 kg
[~2017-01-16 23:02] MED LIST changes: +FOLI1 PO; +MULT-248 PO; +THIA100 PO; +VITAD1000 PO
[2017-01-16] MEDS ORDERED: PALIPERIDONE 3 MG ER TABLET PO PRN (23:30)
[2017-01-16 23:33] VITALS: BP 111/65
[2017-01-17 00:43] VITALS: BP 118/75
[2017-01-17] MEDS ORDERED: INFLUENZA VIRUS VACCINE QVS 2017-18 (3YR+)/PF 60 MCG/0.5 ML SYRINGE IM ONE (03:15)
[2017-01-17 08:12] VITALS: BP 108/72
[2017-01-17] MEDS: NALTREXONE HCL 50 MG TABLET PO SCH (08:59)
[2017-01-17] MEDS ORDERED: MAG HYDROX/AL HYDROX/SIMETH ES 30 ML SUSPENSION UDCUP PO PRN (11:45)
[2017-01-17] MEDS ORDERED: LOPERAMIDE HCL 2 MG CAPSULE PO PRN (11:45)
[2017-01-17] MEDS ORDERED: ACETAMINOPHEN 325 MG TABLET PO PRN (11:45)
[2017-01-17] MEDS ORDERED: PROMETHAZINE HCL 25 MG TABLET PO PRN (11:45)
[2017-01-17] MEDS ORDERED: GuaiFENesin/D-METHORPHAN [SUGAR-FREE] 200-20MG/10 ML SYRUP UDCUP PO PRN (11:45)
[2017-01-17] MEDS ORDERED: MAGNESIUM HYDROXIDE SUSPENSION 30 ML UDCUP PO PRN (11:45)
[2017-01-17 16:12] VITALS: BP 116/67
[2017-01-17] MEDS: LORazepam 2 MG TABLET PO PRN (16:48)
[2017-01-17] MEDS: THIAMINE HCL 100 MG TABLET PO SCH (16:48)
[2017-01-17] MEDS: OLANZapine 5 MG RAPDIS TABLET PO SCH (20:26)
[2017-01-17] MEDS: DIVALPROEX SODIUM 500 MG ER TABLET PO SCH (20:26)
[2017-01-17] MEDS ORDERED: PALIPERIDONE PALMITATE 156 MG/ML SYRINGE IM ONE (21:00)
[2017-01-17] MEDS: ZOLPIDEM TARTRATE 10 MG TABLET PO PRN (21:29)
[2017-01-18 06:31] VITALS: BP 118/75
[2017-01-18 08:12] VITALS: BP 98/61
[2017-01-18] MEDS: FOLIC ACID 1 MG TABLET PO SCH (08:33)
[2017-01-18] MEDS: THIAMINE HCL 100 MG TABLET PO SCH ×2 (08:33→17:03)
[2017-01-18] MEDS: MULTIVITAMINS WITH MINERALS, THERAPEUTIC TABLET PO SCH (08:33)
[2017-01-18] MEDS: NALTREXONE HCL 50 MG TABLET PO SCH (08:33)
[2017-01-18 08:42] LABS: BASOPHILS % (AUTO) 0.4 % (0.0-2.0); EOSINOPHILS % (AUTO) 3.2 % (1.0-6.0); HEMATOCRIT 38.8 % (41-53); HEMOGLOBIN 13.3 g/dL (13.5-17.5); LYMPHOCYTES # (AUTO) 2.5 K/uL (1.0-4.8); LYMPHOCYTES % (AUTO) 30.4 % (22.0-44.0); MEAN CORPUSCULAR HEMOGLOBIN 30.9 pg (26.0-34.0); MEAN CORPUSCULAR HGB CONC 34.2 G/dL (31.0-37.0); MEAN CORPUSCULAR VOLUME 90 fL (80-100); MONOCYTES # (AUTO) 0.8 K/uL (0.1-1.0); MONOCYTES % (AUTO) 9.2 % (2.0-9.0); NEUTROPHILS # (AUTO) 4.7 K/uL (1.8-7.7); NEUTROPHILS % (AUTO) 56.8 % (40.0-70.0); PLATELET COUNT (AUTO) 245 K/uL (150-450); WHITE BLOOD COUNT (AUTO) 8.2 K/uL (4.5-11.0)
[2017-01-18 09:39] LABS: ALANINE AMINOTRANSFERASE 16 U/L (12-78); ALBUMIN 2.9 g/dL (3.4-5.0); ANION GAP 7 mmol/L (8-16); ASPARTATE AMINOTRANSFERASE 10 U/L (15-37); BILIRUBIN,TOTAL 0.3 mg/dL (0.1-1.0); CALCIUM, TOTAL 8.3 mg/dL (8.8-10.5); CARBON DIOXIDE 26 mmol/L (22-29); CHLORIDE 106 mmol/L (98-107); CHOL/HDL RATIO 3.3 (4.2-7.3); CREATININE 0.89 mg/dL (0.60-1.30); GLOMERULAR FILTR. RATE CALC > 60 mL/min (>60); POTASSIUM 3.6 mmol/L (3.5-5.1); SODIUM SERUM 139 mmol/L (136-145); THYROID STIMULATING HORMONE 1.03 uIU/mL (0.36-3.74); TOTAL PROTEIN, SERUM 6.2 g/dL (6.4-8.2); UREA NITROGEN, BLOOD 15 mg/dL (7-18)
[2017-01-18 10:19] LABS: HEMOGLOBIN A1C 5.5 % (4.5-6.2)
[2017-01-18 16:36] VITALS: BP 114/62
[2017-01-18] MEDS: LORazepam 2 MG TABLET PO PRN (16:51)
[2017-01-18] MEDS: OLANZapine 5 MG RAPDIS TABLET PO SCH (20:26)
[2017-01-18] MEDS: DIVALPROEX SODIUM 500 MG ER TABLET PO SCH (20:26)
[2017-01-19] MEDS: FERROUS SULFATE 325 MG EC TABLET PO SCH ×2 (06:40→16:21)
[2017-01-19 06:45] VITALS: BP 118/72
[2017-01-19 08:39] VITALS: BP 116/70
[2017-01-19] MEDS: THIAMINE HCL 100 MG TABLET PO SCH ×2 (09:22→16:21)
[2017-01-19] MEDS: MULTIVITAMINS WITH MINERALS, THERAPEUTIC TABLET PO SCH (09:22)
[2017-01-19] MEDS: FOLIC ACID 1 MG TABLET PO SCH (09:23)
[2017-01-19] MEDS: NALTREXONE HCL 50 MG TABLET PO SCH (09:23)
[2017-01-19] MEDS: OLANZapine 5 MG RAPDIS TABLET PO PRN (12:51)
[2017-01-19 16:00] VITALS: BP 136/80
[2017-01-19] MEDS: LORazepam 2 MG TABLET PO PRN (16:21)
[2017-01-19] MEDS: OLANZapine 5 MG RAPDIS TABLET PO SCH (20:47)
[2017-01-19] MEDS: DIVALPROEX SODIUM 500 MG ER TABLET PO SCH (20:47)
[2017-01-20] MEDS: FERROUS SULFATE 325 MG EC TABLET PO SCH ×2 (06:24→16:17)
[2017-01-20 06:36] VITALS: BP 103/69
[2017-01-20 08:16] VITALS: BP 108/64
[2017-01-20] MEDS: FOLIC ACID 1 MG TABLET PO SCH (09:11)
[2017-01-20] MEDS: MULTIVITAMINS WITH MINERALS, THERAPEUTIC TABLET PO SCH (09:11)
[2017-01-20] MEDS: NALTREXONE HCL 50 MG TABLET PO SCH (09:11)
[2017-01-20] MEDS: THIAMINE HCL 100 MG TABLET PO SCH ×2 (09:12→16:17)
[2017-01-20] MEDS: LORazepam 2 MG TABLET PO PRN ×2 (09:12→16:17)
[2017-01-20 16:00] VITALS: BP 110/76
[2017-01-20] MEDS ORDERED: TUBERCULIN, PURIFIED PROTEIN DERIVATIVE 5 TU/0.1 ML SYG ID ONE (17:30)
[2017-01-20] MEDS: OLANZapine 5 MG RAPDIS TABLET PO SCH (20:26)
[2017-01-20] MEDS: DIVALPROEX SODIUM 500 MG ER TABLET PO SCH (20:26)
[2017-01-21 01:26] VITALS: BP 100/62
[2017-01-21] MEDS: FERROUS SULFATE 325 MG EC TABLET PO SCH ×2 (06:24→16:42)
[2017-01-21 08:19] VITALS: BP 109/65
[2017-01-21] MEDS: NALTREXONE HCL 50 MG TABLET PO SCH (08:51)
[2017-01-21] MEDS: FOLIC ACID 1 MG TABLET PO SCH (08:51)
[2017-01-21] MEDS: THIAMINE HCL 100 MG TABLET PO SCH ×2 (08:52→16:43)
[2017-01-21] MEDS: MULTIVITAMINS WITH MINERALS, THERAPEUTIC TABLET PO SCH (08:52)
[2017-01-21] MEDS: LORazepam 2 MG TABLET PO PRN ×2 (08:55→16:43)
[2017-01-21] MEDS: OLANZapine 5 MG RAPDIS TABLET PO PRN ×2 (09:51→16:42)
[2017-01-21] MEDS: HydrOXYzine PAMOATE 50 MG CAPSULE PO PRN ×2 (09:51→16:43)
[2017-01-21 16:00] VITALS: BP 117/71
[2017-01-21] MEDS: DIVALPROEX SODIUM 500 MG ER TABLET PO SCH (20:54)
[2017-01-21] MEDS: ZOLPIDEM TARTRATE 10 MG TABLET PO PRN (20:55)
[2017-01-21] MEDS: OLANZapine 10 MG RAPDIS TABLET PO SCH (20:55)
[2017-01-22] MEDS: FERROUS SULFATE 325 MG EC TABLET PO SCH ×2 (06:21→16:49)
[2017-01-22] MEDS: MULTIVITAMINS WITH MINERALS, THERAPEUTIC TABLET PO SCH (08:18)
[2017-01-22] MEDS: NALTREXONE HCL 50 MG TABLET PO SCH (08:18)
[2017-01-22] MEDS: THIAMINE HCL 100 MG TABLET PO SCH ×2 (08:18→16:49)
[2017-01-22] MEDS: FOLIC ACID 1 MG TABLET PO SCH (08:18)
[2017-01-22] MEDS: OLANZapine 5 MG RAPDIS TABLET PO PRN (08:21)
[2017-01-22 08:44] VITALS: BP 98/60
[2017-01-22 16:00] VITALS: BP 110/67
[2017-01-22] MEDS: LORazepam 2 MG TABLET PO PRN (16:49)
[2017-01-22] MEDS: OLANZapine 10 MG RAPDIS TABLET PO SCH (20:30)
[2017-01-22] MEDS: DIVALPROEX SODIUM 500 MG ER TABLET PO SCH (20:31)
[2017-01-23] MEDS: FERROUS SULFATE 325 MG EC TABLET PO SCH ×2 (06:25→16:28)
[2017-01-23 06:40] VITALS: BP 111/66
[2017-01-23 09:13] VITALS: BP 111/69
[2017-01-23] MEDS: CHOLECALCIFEROL (VIT D3) 1,000 UNITS TABLET PO SCH (09:43)
[2017-01-23] MEDS: MULTIVITAMINS WITH MINERALS, THERAPEUTIC TABLET PO SCH (09:43)
[2017-01-23] MEDS: LORazepam 2 MG TABLET PO PRN ×2 (09:43→16:28)
[2017-01-23] MEDS: OLANZapine 5 MG RAPDIS TABLET PO PRN ×2 (09:43→16:28)
[2017-01-23] MEDS: FOLIC ACID 1 MG TABLET PO SCH (09:43)
[2017-01-23] MEDS: THIAMINE HCL 100 MG TABLET PO SCH ×2 (09:44→16:28)
[2017-01-23] MEDS: NALTREXONE HCL 50 MG TABLET PO SCH (09:45)
[2017-01-23 16:37] VITALS: BP 117/70
[2017-01-23] MEDS: ZOLPIDEM TARTRATE 10 MG TABLET PO PRN (20:16)
[2017-01-23] MEDS: OLANZapine 10 MG RAPDIS TABLET PO SCH (20:16)
[2017-01-23] MEDS: DIVALPROEX SODIUM 500 MG ER TABLET PO SCH (20:16)
[2017-01-24] MEDS: FERROUS SULFATE 325 MG EC TABLET PO SCH ×2 (06:41→16:18)
[2017-01-24 06:52] VITALS: BP 101/62
[2017-01-24 08:27] VITALS: BP 108/76
[2017-01-24] MEDS: THIAMINE HCL 100 MG TABLET PO SCH ×2 (09:21→16:18)
[2017-01-24] MEDS: MULTIVITAMINS WITH MINERALS, THERAPEUTIC TABLET PO SCH (09:21)
[2017-01-24] MEDS: CHOLECALCIFEROL (VIT D3) 1,000 UNITS TABLET PO SCH (09:22)
[2017-01-24] MEDS: NALTREXONE HCL 50 MG TABLET PO SCH (09:22)
[2017-01-24] MEDS: FOLIC ACID 1 MG TABLET PO SCH (09:22)
[2017-01-24] MEDS: LORazepam 2 MG TABLET PO PRN ×2 (16:20→20:29)
[2017-01-24 16:39] VITALS: BP 120/75
[2017-01-24] MEDS: ZOLPIDEM TARTRATE 10 MG TABLET PO PRN (20:29)
[2017-01-24] MEDS: DIVALPROEX SODIUM 500 MG ER TABLET PO SCH (20:29)
[2017-01-24] MEDS: OLANZapine 10 MG RAPDIS TABLET PO SCH (20:29)
[2017-01-25] MEDS: FERROUS SULFATE 325 MG EC TABLET PO SCH ×2 (07:17→16:38)
[2017-01-25 07:34] VITALS: BP 111/72
[2017-01-25 08:29] VITALS: BP 117/75
[2017-01-25] MEDS: CHOLECALCIFEROL (VIT D3) 1,000 UNITS TABLET PO SCH (09:58)
[2017-01-25] MEDS: MULTIVITAMINS WITH MINERALS, THERAPEUTIC TABLET PO SCH (09:58)
[2017-01-25] MEDS: NALTREXONE HCL 50 MG TABLET PO SCH (09:58)
[2017-01-25] MEDS: FOLIC ACID 1 MG TABLET PO SCH (09:58)
[2017-01-25] MEDS: THIAMINE HCL 100 MG TABLET PO SCH ×2 (09:58→16:38)
[2017-01-25] MEDS ORDERED: NALT50TA PO (14:26)
[2017-01-25] MEDS ORDERED: OLAN10TA22 PO (14:26)
[2017-01-25] MEDS ORDERED: DIVA500T52 PO (14:26)
[2017-01-25 16:00] VITALS: BP 129/77
[2017-01-25] MEDS: LORazepam 2 MG TABLET PO PRN ×2 (16:38→20:39)
[2017-01-25] MEDS: DIVALPROEX SODIUM 500 MG ER TABLET PO SCH (20:38)
[2017-01-25] MEDS: ZOLPIDEM TARTRATE 10 MG TABLET PO PRN (20:39)
[2017-01-25] MEDS: OLANZapine 10 MG RAPDIS TABLET PO SCH (20:39)
[2017-01-26 05:25] VITALS: BP 116/70
[2017-01-26] MEDS: FERROUS SULFATE 325 MG EC TABLET PO SCH ×2 (06:38→16:21)
[2017-01-26 08:42] VITALS: BP 128/75
[2017-01-26] MEDS: CHOLECALCIFEROL (VIT D3) 1,000 UNITS TABLET PO SCH (09:27)
[2017-01-26] MEDS: MULTIVITAMINS WITH MINERALS, THERAPEUTIC TABLET PO SCH (09:27)
[2017-01-26] MEDS: THIAMINE HCL 100 MG TABLET PO SCH ×2 (09:27→16:21)
[2017-01-26] MEDS: NALTREXONE HCL 50 MG TABLET PO SCH (09:27)
[2017-01-26] MEDS: FOLIC ACID 1 MG TABLET PO SCH (09:27)
[2017-01-26 16:00] VITALS: BP 124/81
[2017-01-26] MEDS: OLANZapine 5 MG RAPDIS TABLET PO PRN (16:21)
[2017-01-26] MEDS: LORazepam 2 MG TABLET PO PRN ×2 (16:21→20:32)
[2017-01-26] MEDS: OLANZapine 10 MG RAPDIS TABLET PO SCH (20:32)
[2017-01-26] MEDS: ZOLPIDEM TARTRATE 10 MG TABLET PO PRN (20:32)
[2017-01-26] MEDS: DIVALPROEX SODIUM 500 MG ER TABLET PO SCH (20:32)
[2017-01-27 06:00] VITALS: BP 123/75
[2017-01-27] MEDS: FERROUS SULFATE 325 MG EC TABLET PO SCH ×2 (06:16→16:13)
[2017-01-27 08:06] VITALS: BP 129/69
[2017-01-27] MEDS: NALTREXONE HCL 50 MG TABLET PO SCH (08:31)
[2017-01-27] MEDS: THIAMINE HCL 100 MG TABLET PO SCH (08:31)
[2017-01-27] MEDS: CHOLECALCIFEROL (VIT D3) 1,000 UNITS TABLET PO SCH (08:31)
[2017-01-27] MEDS: FOLIC ACID 1 MG TABLET PO SCH (08:31)
[2017-01-27] MEDS: MULTIVITAMINS WITH MINERALS, THERAPEUTIC TABLET PO SCH (08:31)
[2017-01-27 16:14] VITALS: BP 111/86
[2017-01-27] MEDS: OLANZapine 10 MG RAPDIS TABLET PO SCH (20:06)
[2017-01-27] MEDS: DIVALPROEX SODIUM 500 MG ER TABLET PO SCH (20:06)
[2017-01-28] MEDS: FERROUS SULFATE 325 MG EC TABLET PO SCH ×2 (06:26→16:46)
[2017-01-28 06:55] VITALS: BP 118/82
[2017-01-28 08:35] VITALS: BP 119/61
[2017-01-28] MEDS: NALTREXONE HCL 50 MG TABLET PO SCH (08:49)
[2017-01-28] MEDS: MULTIVITAMINS WITH MINERALS, THERAPEUTIC TABLET PO SCH (08:49)
[2017-01-28] MEDS: CHOLECALCIFEROL (VIT D3) 1,000 UNITS TABLET PO SCH (08:49)
[2017-01-28 16:00] VITALS: BP 132/88
[2017-01-28] MEDS: LORazepam 2 MG TABLET PO PRN (16:46)
[2017-01-28] MEDS: OLANZapine 10 MG RAPDIS TABLET PO SCH (20:40)
[2017-01-28] MEDS: DIVALPROEX SODIUM 500 MG ER TABLET PO SCH (20:40)
[2017-01-29 04:10] VITALS: BP 140/90
[2017-01-29] MEDS: FERROUS SULFATE 325 MG EC TABLET PO SCH (06:22)
[2017-01-29 08:32] VITALS: BP 108/60
[2017-01-29] MEDS: CHOLECALCIFEROL (VIT D3) 1,000 UNITS TABLET PO SCH (09:24)
[2017-01-29] MEDS: NALTREXONE HCL 50 MG TABLET PO SCH (09:24)
[2017-01-29] MEDS: MULTIVITAMINS WITH MINERALS, THERAPEUTIC TABLET PO SCH (09:24)
== END 2017-01-29 15:20 | disposition home or self-care (01) | DRG 750 ==
LOC: B3A 23:28 → EDSTATUS 23:33
PROVIDERS: ADMIT Psychiatry & Neurology Psychiatry; ATTEND Psychiatry & Neurology Psychiatry
DX: F25.1 Schizoaffective disorder, depressive type (principal); F22 Delusional disorders; R45.851 Suicidal ideations; E55.9 Vitamin D deficiency, unspecified; E66.9 Obesity, unspecified; F12.90 Cannabis use, unspecified, uncomplicated; Z71.51 Drug abuse counseling and surveillance of drug abuser; F15.10 Other stimulant abuse, uncomplicated; F17.210 Nicotine dependence, cigarettes, uncomplicated; G47.00 Insomnia, unspecified; Z59.0 Homelessness; Z68.38 Body mass index [BMI] 38.0-38.9, adult; Z91.19 Patient's noncompliance with other medical treatment and regimen; Z28.21 Immunization not carried out because of patient refusal
CPT/HCPCS: 82306; 83036; 84439; 84443; 87081

== ENCOUNTER 2017-05-31 02:34 | Inpatient (IN) | payer MEDICARE ==
[~2017-05-31] VITALS: Ht 175.3 cm; Wt 120.2 kg
[~2017-05-31 02:34] MED LIST changes: -FOLI1 PO; -MULT-248 PO; +OLAN10TA22 PO; -THIA100 PO
[2017-05-31 07:00] VITALS: BP 136/92
[2017-05-31] MEDS ORDERED: OLANZapine 5 MG RAPDIS TABLET PO PRN (09:00)
[2017-05-31] MEDS ORDERED: PALI234D IM (10:41)
[2017-05-31] MEDS ORDERED: PALIPERIDONE PALMITATE 234 MG/1.5 ML SYRINGE IM ONE (11:00)
[2017-05-31] MEDS ORDERED: MAGNESIUM HYDROXIDE SUSPENSION 30 ML UDCUP PO PRN ×2 (11:00→13:45)
[2017-05-31] MEDS ORDERED: ACETAMINOPHEN 325 MG TABLET PO PRN ×2 (11:00→13:45)
[2017-05-31] MEDS ORDERED: PALIPERIDONE 1.5 MG ER TABLET PO PRN (11:00)
[2017-05-31] MEDS ORDERED: PROMETHAZINE HCL 25 MG TABLET PO PRN (11:00)
[2017-05-31] MEDS ORDERED: MAG HYDROX/AL HYDROX/SIMETH ES 30 ML SUSPENSION UDCUP PO PRN ×2 (11:00→13:45)
[2017-05-31] MEDS ORDERED: HydrOXYzine PAMOATE 50 MG CAPSULE PO PRN (11:00)
[2017-05-31] MEDS ORDERED: GuaiFENesin/D-METHORPHAN [SUGAR-FREE] 200-20MG/10 ML SYRUP UDCUP PO PRN (11:00)
[2017-05-31] MEDS ORDERED: LOPERAMIDE HCL 2 MG CAPSULE PO PRN ×2 (11:00→13:45)
[2017-05-31] MEDS ORDERED: INFLUENZA VIRUS VACCINE QVS 2017-18 (3YR+)/PF 60 MCG/0.5 ML SYRINGE IM ONE (11:00)
[2017-05-31] MEDS ORDERED: IBUPROFEN 600 MG TABLET PO PRN (13:45)
[2017-05-31] MEDS ORDERED: ALBUTEROL SULFATE HFA 90 MCG/PUFF 8 GM INHALER IH PRN (13:45)
[2017-05-31] MEDS ORDERED: PETROLATUM,WHITE 71 GM JELLY TP PRN (13:45)
[2017-05-31] MEDS ORDERED: BACITRACIN 28.4 GM OINTMENT TP PRN (13:45)
[2017-05-31] MEDS ORDERED: CloNIDine HCL 0.1 MG TABLET PO PRN (13:45)
[2017-05-31] MEDS ORDERED: BENZOCAINE/MENTHOL LOZENGE MM PRN (13:45)
[2017-05-31] MEDS ORDERED: ONDANSETRON HCL 4 MG TABLET PO PRN (13:45)
[2017-05-31 16:00] VITALS: BP 117/68
[2017-05-31] MEDS: LORazepam 1 MG TABLET PO PRN (16:59)
[2017-05-31] MEDS: THIAMINE HCL 100 MG TABLET PO SCH (16:59)
[2017-05-31] MEDS: DIVALPROEX SODIUM 500 MG ER TABLET PO SCH (20:45)
[2017-05-31] MEDS ORDERED: PALIPERIDONE 3 MG ER TABLET PO SCH (21:00)
[2017-05-31] MEDS ORDERED: OLANZapine 10 MG RAPDIS TABLET PO SCH (21:00)
[2017-06-01 06:58] VITALS: BP 118/78
[2017-06-01 08:11] VITALS: BP 136/88
[2017-06-01 08:25] LABS: BASOPHILS % (AUTO) 0.3 % (0.0-2.0); EOSINOPHILS % (AUTO) 4.3 % (1.0-6.0); HEMATOCRIT 37.9 % (41-53); LYMPHOCYTES # (AUTO) 2.2 K/uL (1.0-4.8); LYMPHOCYTES % (AUTO) 26.2 % (22.0-44.0); MEAN CORPUSCULAR HEMOGLOBIN 30.1 pg (26.0-34.0); MEAN CORPUSCULAR HGB CONC 34.3 G/dL (31.0-37.0); MEAN CORPUSCULAR VOLUME 88 fL (80-100); MONOCYTES # (AUTO) 0.7 K/uL (0.1-1.0); MONOCYTES % (AUTO) 8.1 % (2.0-9.0); NEUTROPHILS # (AUTO) 5.1 K/uL (1.8-7.7); NEUTROPHILS % (AUTO) 61.1 % (40.0-70.0); PLATELET COUNT (AUTO) 248 K/uL (150-450); RED BLOOD CELL COUNT(AUTO) 4.32 MIL/uL (4.50-5.90); RED CELL DISTRIBUTION WIDTH 14.8 % (11.5-14.5)
[2017-06-01 08:59] LABS: ALANINE AMINOTRANSFERASE 19 U/L (12-78); ALBUMIN 3.1 g/dL (3.4-5.0); ALKALINE PHOSPHATASE 75 U/L (46-116); ANION GAP 6 mmol/L (8-16); ASPARTATE AMINOTRANSFERASE 14 U/L (15-37); BILIRUBIN,TOTAL 0.4 mg/dL (0.1-1.0); CALCIUM, TOTAL 8.7 mg/dL (8.8-10.5); CARBON DIOXIDE 28 mmol/L (22-29); CHLORIDE 106 mmol/L (98-107); CHOL/HDL RATIO 4.1 (4.2-7.3); CHOLESTEROL 138 mg/dL (131-200); CREATININE 0.88 mg/dL (0.60-1.30); FREE T4 (FREE THYROXINE) 1.04 ng/dL (0.76-1.46); GLOMERULAR FILTR. RATE CALC > 60 mL/min (>60); GLUCOSE,RANDOM 96 mg/dL (70-110); HDL CHOLESTEROL 34 mg/dL (40-60); LDL CHOL (CALC.) 82 mg/dL (0-130); POTASSIUM 3.7 mmol/L (3.5-5.1); SODIUM SERUM 140 mmol/L (136-145); THYROID STIMULATING HORMONE 0.87 uIU/mL (0.36-3.74); TOTAL PROTEIN, SERUM 6.7 g/dL (6.4-8.2); TRIGLYCERIDES 112 mg/dL (15-150); UREA NITROGEN, BLOOD 14 mg/dL (7-18)
[2017-06-01] MEDS: OMEPRAZOLE 20 MG CAPSULE PO SCH (09:19)
[2017-06-01] MEDS: MULTIVITAMINS WITH MINERALS, THERAPEUTIC TABLET PO SCH (09:19)
[2017-06-01] MEDS: DOCUSATE SODIUM 100 MG CAPSULE PO SCH (09:19)
[2017-06-01] MEDS: NALTREXONE HCL 50 MG TABLET PO SCH (09:19)
[2017-06-01] MEDS: FOLIC ACID 1 MG TABLET PO SCH (09:20)
[2017-06-01] MEDS: THIAMINE HCL 100 MG TABLET PO SCH ×2 (09:20→16:59)
[2017-06-01 16:00] VITALS: BP 121/68
[2017-06-01] MEDS: LORazepam 1 MG TABLET PO PRN (16:59)
[2017-06-01] MEDS: DIVALPROEX SODIUM 500 MG ER TABLET PO SCH (20:49)
[2017-06-02 06:32] VITALS: BP 122/75
[2017-06-02 08:00] VITALS: BP 113/67
[2017-06-02 08:27] LABS: HEMOGLOBIN A1C 5.4 % (4.5-6.2)
[2017-06-02] MEDS: DOCUSATE SODIUM 100 MG CAPSULE PO SCH (08:50)
[2017-06-02] MEDS: OMEPRAZOLE 20 MG CAPSULE PO SCH (08:50)
[2017-06-02] MEDS: FOLIC ACID 1 MG TABLET PO SCH (08:50)
[2017-06-02] MEDS: THIAMINE HCL 100 MG TABLET PO SCH ×2 (08:51→16:40)
[2017-06-02] MEDS: NALTREXONE HCL 50 MG TABLET PO SCH (08:51)
[2017-06-02] MEDS: MULTIVITAMINS WITH MINERALS, THERAPEUTIC TABLET PO SCH (08:51)
[2017-06-02 16:43] VITALS: BP 117/67
[2017-06-02] MEDS: LORazepam 1 MG TABLET PO PRN (17:15)
[2017-06-02] MEDS: ZOLPIDEM TARTRATE 10 MG TABLET PO PRN (20:41)
[2017-06-02] MEDS: DIVALPROEX SODIUM 500 MG ER TABLET PO SCH (20:41)
[2017-06-03 06:49] VITALS: BP 107/62
[2017-06-03 08:34] VITALS: BP 115/70
[2017-06-03] MEDS: MULTIVITAMINS WITH MINERALS, THERAPEUTIC TABLET PO SCH (08:43)
[2017-06-03] MEDS: DOCUSATE SODIUM 100 MG CAPSULE PO SCH (08:43)
[2017-06-03] MEDS: OMEPRAZOLE 20 MG CAPSULE PO SCH (08:43)
[2017-06-03] MEDS: NALTREXONE HCL 50 MG TABLET PO SCH (08:43)
[2017-06-03] MEDS: FOLIC ACID 1 MG TABLET PO SCH (08:43)
[2017-06-03] MEDS: THIAMINE HCL 100 MG TABLET PO SCH ×2 (08:43→16:54)
[2017-06-03 16:00] VITALS: BP 121/74
[2017-06-03] MEDS: LORazepam 1 MG TABLET PO PRN (16:55)
[2017-06-03] MEDS: DIVALPROEX SODIUM 500 MG ER TABLET PO SCH (20:55)
[2017-06-03] MEDS: ZOLPIDEM TARTRATE 10 MG TABLET PO PRN (20:55)
[2017-06-04 06:45] VITALS: BP 111/63
[2017-06-04 08:56] VITALS: BP 114/72
[2017-06-04] MEDS: PALIPERIDONE PALMITATE 156 MG/ML SYRINGE IM ONE ×2 (09:00→17:21)
[2017-06-04] MEDS: OMEPRAZOLE 20 MG CAPSULE PO SCH (09:35)
[2017-06-04] MEDS: FOLIC ACID 1 MG TABLET PO SCH (09:36)
[2017-06-04] MEDS: NALTREXONE HCL 50 MG TABLET PO SCH (09:36)
[2017-06-04] MEDS: DOCUSATE SODIUM 100 MG CAPSULE PO SCH (09:36)
[2017-06-04] MEDS: THIAMINE HCL 100 MG TABLET PO SCH ×2 (09:36→16:53)
[2017-06-04] MEDS: LORazepam 1 MG TABLET PO PRN ×2 (09:36→17:22)
[2017-06-04] MEDS: MULTIVITAMINS WITH MINERALS, THERAPEUTIC TABLET PO SCH (09:36)
[2017-06-04 16:00] VITALS: BP 116/65
[2017-06-04] MEDS: DIVALPROEX SODIUM 250 MG ER TABLET PO SCH (20:48)
[2017-06-04] MEDS: DIVALPROEX SODIUM 500 MG ER TABLET PO SCH (20:48)
[2017-06-04] MEDS: ZOLPIDEM TARTRATE 10 MG TABLET PO PRN (20:48)
[2017-06-05 06:43] VITALS: BP 110/70
[2017-06-05 08:13] VITALS: BP 111/68
[2017-06-05] MEDS: OMEPRAZOLE 20 MG CAPSULE PO SCH (08:34)
[2017-06-05] MEDS: THIAMINE HCL 100 MG TABLET PO SCH ×2 (08:34→16:53)
[2017-06-05] MEDS: DOCUSATE SODIUM 100 MG CAPSULE PO SCH (08:34)
[2017-06-05] MEDS: NALTREXONE HCL 50 MG TABLET PO SCH (08:34)
[2017-06-05] MEDS: LORazepam 1 MG TABLET PO PRN ×2 (08:34→16:53)
[2017-06-05] MEDS: MULTIVITAMINS WITH MINERALS, THERAPEUTIC TABLET PO SCH (08:34)
[2017-06-05] MEDS: FOLIC ACID 1 MG TABLET PO SCH (08:35)
[2017-06-05 16:00] VITALS: BP 118/69
[2017-06-05] MEDS: DIVALPROEX SODIUM 500 MG ER TABLET PO SCH (20:13)
[2017-06-05] MEDS: ZOLPIDEM TARTRATE 10 MG TABLET PO PRN (20:14)
[2017-06-05] MEDS: DIVALPROEX SODIUM 250 MG ER TABLET PO SCH (20:14)
[2017-06-06 06:57] VITALS: BP 107/61
[2017-06-06 08:10] VITALS: BP 108/64
[2017-06-06] MEDS: THIAMINE HCL 100 MG TABLET PO SCH ×2 (09:16→16:27)
[2017-06-06] MEDS: DOCUSATE SODIUM 100 MG CAPSULE PO SCH (09:16)
[2017-06-06] MEDS: FOLIC ACID 1 MG TABLET PO SCH (09:17)
[2017-06-06] MEDS: MULTIVITAMINS WITH MINERALS, THERAPEUTIC TABLET PO SCH (09:17)
[2017-06-06] MEDS: NALTREXONE HCL 50 MG TABLET PO SCH (09:17)
[2017-06-06] MEDS: OMEPRAZOLE 20 MG CAPSULE PO SCH (09:17)
[2017-06-06 16:19] VITALS: BP 118/74
[2017-06-06] MEDS: LORazepam 1 MG TABLET PO PRN (16:27)
[2017-06-06] MEDS: DIVALPROEX SODIUM 500 MG ER TABLET PO SCH (20:26)
[2017-06-06] MEDS: ZOLPIDEM TARTRATE 10 MG TABLET PO PRN (20:26)
[2017-06-06] MEDS: DIVALPROEX SODIUM 250 MG ER TABLET PO SCH (20:26)
[2017-06-07 04:30] VITALS: BP 118/90
[2017-06-07 08:33] VITALS: BP 136/80
[2017-06-07] MEDS: FOLIC ACID 1 MG TABLET PO SCH (09:02)
[2017-06-07] MEDS: DOCUSATE SODIUM 100 MG CAPSULE PO SCH (09:02)
[2017-06-07] MEDS: MULTIVITAMINS WITH MINERALS, THERAPEUTIC TABLET PO SCH (09:02)
[2017-06-07] MEDS: OMEPRAZOLE 20 MG CAPSULE PO SCH (09:02)
[2017-06-07] MEDS: THIAMINE HCL 100 MG TABLET PO SCH ×2 (09:02→16:55)
[2017-06-07] MEDS: NALTREXONE HCL 50 MG TABLET PO SCH (09:02)
[2017-06-07 16:23] VITALS: BP 116/67
[2017-06-07] MEDS: LORazepam 1 MG TABLET PO PRN (16:55)
[2017-06-07] MEDS: DIVALPROEX SODIUM 250 MG ER TABLET PO SCH (20:25)
[2017-06-07] MEDS: ZOLPIDEM TARTRATE 10 MG TABLET PO PRN (20:25)
[2017-06-07] MEDS: DIVALPROEX SODIUM 500 MG ER TABLET PO SCH (20:25)
[2017-06-08 06:49] VITALS: BP 108/65
[2017-06-08 08:28] VITALS: BP 112/68
[2017-06-08] MEDS: FOLIC ACID 1 MG TABLET PO SCH (09:18)
[2017-06-08] MEDS: NALTREXONE HCL 50 MG TABLET PO SCH (09:18)
[2017-06-08] MEDS: DOCUSATE SODIUM 100 MG CAPSULE PO SCH (09:18)
[2017-06-08] MEDS: OMEPRAZOLE 20 MG CAPSULE PO SCH (09:18)
[2017-06-08] MEDS: MULTIVITAMINS WITH MINERALS, THERAPEUTIC TABLET PO SCH (09:18)
[2017-06-08] MEDS: THIAMINE HCL 100 MG TABLET PO SCH ×2 (09:18→16:35)
[2017-06-08 16:00] VITALS: BP 137/82
[2017-06-08] MEDS: LORazepam 1 MG TABLET PO PRN (16:35)
[2017-06-08] MEDS: DIVALPROEX SODIUM 500 MG ER TABLET PO SCH (20:25)
[2017-06-08] MEDS: DIVALPROEX SODIUM 250 MG ER TABLET PO SCH (20:26)
[2017-06-09 06:13] VITALS: BP 119/80
[2017-06-09 08:09] VITALS: BP 114/67
[2017-06-09] MEDS: DOCUSATE SODIUM 100 MG CAPSULE PO SCH (08:56)
[2017-06-09] MEDS: MULTIVITAMINS WITH MINERALS, THERAPEUTIC TABLET PO SCH (08:56)
[2017-06-09] MEDS: THIAMINE HCL 100 MG TABLET PO SCH ×2 (08:56→16:16)
[2017-06-09] MEDS: OMEPRAZOLE 20 MG CAPSULE PO SCH (08:56)
[2017-06-09] MEDS: FOLIC ACID 1 MG TABLET PO SCH (08:56)
[2017-06-09] MEDS: NALTREXONE HCL 50 MG TABLET PO SCH (08:56)
[2017-06-09 16:00] VITALS: BP 110/65
[2017-06-09] MEDS: LORazepam 1 MG TABLET PO PRN (16:16)
[2017-06-09] MEDS: DIVALPROEX SODIUM 250 MG ER TABLET PO SCH (20:20)
[2017-06-09] MEDS: ZOLPIDEM TARTRATE 10 MG TABLET PO PRN (20:20)
[2017-06-09] MEDS: DIVALPROEX SODIUM 500 MG ER TABLET PO SCH (20:20)
[2017-06-10 08:11] VITALS: BP 118/61
[2017-06-10] MEDS: MULTIVITAMINS WITH MINERALS, THERAPEUTIC TABLET PO SCH (09:08)
[2017-06-10] MEDS: THIAMINE HCL 100 MG TABLET PO SCH (09:08)
[2017-06-10] MEDS: FOLIC ACID 1 MG TABLET PO SCH (09:08)
[2017-06-10] MEDS: DOCUSATE SODIUM 100 MG CAPSULE PO SCH (09:08)
[2017-06-10] MEDS: OMEPRAZOLE 20 MG CAPSULE PO SCH (09:08)
[2017-06-10] MEDS: NALTREXONE HCL 50 MG TABLET PO SCH (09:08)
[2017-06-10 16:00] VITALS: BP 126/89
[2017-06-10] MEDS: LORazepam 1 MG TABLET PO PRN (17:05)
[2017-06-10] MEDS: DIVALPROEX SODIUM 500 MG ER TABLET PO SCH (20:46)
[2017-06-10] MEDS: DIVALPROEX SODIUM 250 MG ER TABLET PO SCH (20:46)
[2017-06-11 00:05] VITALS: BP 134/83
[2017-06-11 08:09] VITALS: BP 112/68
[2017-06-11] MEDS: NALTREXONE HCL 50 MG TABLET PO SCH (08:39)
[2017-06-11] MEDS: DOCUSATE SODIUM 100 MG CAPSULE PO SCH (08:39)
[2017-06-11] MEDS: OMEPRAZOLE 20 MG CAPSULE PO SCH (08:40)
[2017-06-11] MEDS: MULTIVITAMINS WITH MINERALS, THERAPEUTIC TABLET PO SCH (08:40)
[2017-06-11 16:00] VITALS: BP 115/66
[2017-06-11] MEDS: LORazepam 1 MG TABLET PO PRN (16:50)
[2017-06-11] MEDS: DIVALPROEX SODIUM 250 MG ER TABLET PO SCH (20:41)
[2017-06-11] MEDS: DIVALPROEX SODIUM 500 MG ER TABLET PO SCH (20:41)
[2017-06-11] MEDS: ZOLPIDEM TARTRATE 10 MG TABLET PO PRN (20:42)
[2017-06-12 06:06] VITALS: BP 107/76
[2017-06-12 08:39] VITALS: BP 136/60
[2017-06-12] MEDS: NALTREXONE HCL 50 MG TABLET PO SCH (08:44)
[2017-06-12] MEDS: MULTIVITAMINS WITH MINERALS, THERAPEUTIC TABLET PO SCH (08:44)
[2017-06-12] MEDS: DOCUSATE SODIUM 100 MG CAPSULE PO SCH (08:44)
[2017-06-12] MEDS: OMEPRAZOLE 20 MG CAPSULE PO SCH (08:44)
[2017-06-12 16:09] VITALS: BP 107/60
[2017-06-12] MEDS: DIVALPROEX SODIUM 250 MG ER TABLET PO SCH (20:07)
[2017-06-12] MEDS: DIVALPROEX SODIUM 500 MG ER TABLET PO SCH (20:08)
[2017-06-12] MEDS ORDERED: HALOPERIDOL LACTATE 5 MG/ML VIAL IM ONE (20:30)
[2017-06-12] MEDS ORDERED: LORazepam 2 MG/ML VIAL IM ONE (20:30)
[2017-06-12] MEDS ORDERED: DiphenhydrAMINE HCL 50 MG/ML VIAL IM ONE (20:30)
[2017-06-12 21:40] VITALS: BP 118/72
[2017-06-13 08:10] VITALS: BP 111/62
[2017-06-13] MEDS: OMEPRAZOLE 20 MG CAPSULE PO SCH (09:53)
[2017-06-13] MEDS: MULTIVITAMINS WITH MINERALS, THERAPEUTIC TABLET PO SCH (09:53)
[2017-06-13] MEDS: NALTREXONE HCL 50 MG TABLET PO SCH (09:53)
[2017-06-13] MEDS: DOCUSATE SODIUM 100 MG CAPSULE PO SCH (09:53)
[2017-06-13 16:00] VITALS: BP 117/70
[2017-06-13] MEDS: LORazepam 1 MG TABLET PO PRN (16:57)
[2017-06-13] MEDS: DIVALPROEX SODIUM 250 MG ER TABLET PO SCH (20:42)
[2017-06-13] MEDS: DIVALPROEX SODIUM 500 MG ER TABLET PO SCH (20:42)
[2017-06-13] MEDS: ZOLPIDEM TARTRATE 10 MG TABLET PO PRN (20:42)
[2017-06-14 06:46] VITALS: BP 107/59
[2017-06-14] MEDS ORDERED: DIVA250T45 PO (08:21)
[2017-06-14] MEDS ORDERED: DSS100 PO (08:21)
[2017-06-14] MEDS ORDERED: MULT-1239 PO (08:22)
[2017-06-14] MEDS ORDERED: OMEP20 PO (08:22)
[2017-06-14 08:30] VITALS: BP 124/68
[2017-06-14] MEDS: NALTREXONE HCL 50 MG TABLET PO SCH (08:47)
[2017-06-14] MEDS: DOCUSATE SODIUM 100 MG CAPSULE PO SCH (08:47)
[2017-06-14] MEDS: OMEPRAZOLE 20 MG CAPSULE PO SCH (08:48)
[2017-06-14] MEDS: MULTIVITAMINS WITH MINERALS, THERAPEUTIC TABLET PO SCH (08:48)
[2017-06-14] MEDS ORDERED: PALI234D IM (10:13)
== END 2017-06-14 18:01 | disposition home or self-care (01) | DRG 885 ==
LOC: OBSVTOIN 07:00 → B3A 07:00
PROVIDERS: ADMIT Psychiatry & Neurology Psychiatry; ATTEND Psychiatry & Neurology Psychiatry
DX: F25.9 Schizoaffective disorder, unspecified (principal); R45.851 Suicidal ideations; Z68.41 Body mass index [BMI] 40.0-44.9, adult; E55.9 Vitamin D deficiency, unspecified; E66.9 Obesity, unspecified; F12.90 Cannabis use, unspecified, uncomplicated; F15.10 Other stimulant abuse, uncomplicated; F17.210 Nicotine dependence, cigarettes, uncomplicated; G24.01 Drug induced subacute dyskinesia; G47.00 Insomnia, unspecified; I10 Essential (primary) hypertension; Z59.0 Homelessness; Z71.6 Tobacco abuse counseling; Z71.51 Drug abuse counseling and surveillance of drug abuser; Z65.3 Problems related to other legal circumstances; Z91.14 Patient's other noncompliance with medication regimen; Z91.19 Patient's noncompliance with other medical treatment and regimen; Z79.899 Other long term (current) drug therapy
CPT/HCPCS: 83036; 84439; 84443; 86592; G0480; J1200; J1630; J2060

== ENCOUNTER 2017-08-14 22:55 | Inpatient (IN) | payer MEDICARE ==
[~2017-08-14] VITALS: Ht 177.8 cm; Wt 125.1 kg
[~2017-08-14 22:55] MED LIST changes: +NALT50TA6 PO; +OLAN10TA6 PO; -PALI234D IM; -VITAD1000 PO
[2017-08-15 00:38] LABS: BASOPHILS % (AUTO) 0.2 % (0.0-2.0); EOSINOPHILS % (AUTO) 2.1 % (1.0-6.0); HEMATOCRIT 39.1 % (41-53); HEMOGLOBIN 13.5 g/dL (13.5-17.5); LYMPHOCYTES # (AUTO) 2.1 K/uL (1.0-4.8); LYMPHOCYTES % (AUTO) 20.3 % (22.0-44.0); MEAN CORPUSCULAR HEMOGLOBIN 29.7 pg (26.0-34.0); MEAN CORPUSCULAR HGB CONC 34.7 G/dL (31.0-37.0); MEAN CORPUSCULAR VOLUME 86 fL (80-100); MONOCYTES # (AUTO) 0.9 K/uL (0.1-1.0); MONOCYTES % (AUTO) 9.3 % (2.0-9.0); NEUTROPHILS # (AUTO) 6.9 K/uL (1.8-7.7); NEUTROPHILS % (AUTO) 68.1 % (40.0-70.0); PLATELET COUNT (AUTO) 257 K/uL (150-450); RED BLOOD CELL COUNT(AUTO) 4.55 MIL/uL (4.50-5.90); RED CELL DISTRIBUTION WIDTH 13.8 % (11.5-14.5)
[2017-08-15 00:46] LABS: ANION GAP 8 mmol/L (8-16); CALCIUM, TOTAL 8.5 mg/dL (8.8-10.5); CARBON DIOXIDE 27 mmol/L (22-29); CHLORIDE 104 mmol/L (98-107); CREATININE 1.09 mg/dL (0.60-1.30); GLOMERULAR FILTR. RATE CALC > 60 mL/min (>60); GLUCOSE,RANDOM 129 mg/dL (70-110); POTASSIUM 3.9 mmol/L (3.5-5.1); SODIUM SERUM 139 mmol/L (136-145); UREA NITROGEN, BLOOD 15 mg/dL (7-18)
[2017-08-15 00:54] LABS: ALANINE AMINOTRANSFERASE 27 U/L (12-78); ALBUMIN 3.4 g/dL (3.4-5.0); ALKALINE PHOSPHATASE 86 U/L (46-116); ASPARTATE AMINOTRANSFERASE 25 U/L (15-37); BILIRUBIN,TOTAL 0.2 mg/dL (0.1-1.0); TOTAL PROTEIN, SERUM 7.4 g/dL (6.4-8.2)
[2017-08-15] MEDS ORDERED: HALOPERIDOL 5 MG TABLET PO PRN (01:30)
[2017-08-15 02:01] LABS: AMPHET/METH SCREEN,URINE NEGATIVE (NEGATIVE); BARBITURATE SCREEN, URINE NEGATIVE (NEGATIVE); BENZODIAZEPINES SCREEN,URINE NEGATIVE (NEGATIVE); CANNABINOID SCREEN,URINE NEGATIVE (NEGATIVE); COCAINE SCREEN,URINE NEGATIVE (NEGATIVE); METHADONE SCREEN, URINE NEGATIVE (NEGATIVE); OPIATE SCREEN,URINE NEGATIVE (NEGATIVE)
[2017-08-15 02:02] LABS: PHENCYCLIDINE SCREEN,URINE NEGATIVE (NEGATIVE)
[2017-08-15] MEDS: ZOLPIDEM TARTRATE 10 MG TABLET PO PRN (03:42)
[2017-08-15] MEDS ORDERED: LORazepam 2 MG/ML VIAL IM ONE (03:45)
[2017-08-15] MEDS ORDERED: HALOPERIDOL LACTATE 5 MG/ML VIAL IM ONE (03:45)
[2017-08-15] MEDS ORDERED: DiphenhydrAMINE HCL 50 MG/ML VIAL IM ONE (03:45)
[2017-08-15 12:00] VITALS: BP 121/65
[2017-08-15] MEDS ORDERED: GuaiFENesin/D-METHORPHAN [SUGAR-FREE] 200-20MG/10 ML SYRUP UDCUP PO PRN (12:45)
[2017-08-15] MEDS ORDERED: CYANOCOBALAMIN 1,000 MCG/ML VIAL IM ONE (12:45)
[2017-08-15] MEDS ORDERED: ACETAMINOPHEN 325 MG TABLET PO PRN (12:45)
[2017-08-15] MEDS ORDERED: PROMETHAZINE HCL 25 MG TABLET PO PRN (12:45)
[2017-08-15] MEDS ORDERED: MAGNESIUM HYDROXIDE SUSPENSION 30 ML UDCUP PO PRN (12:45)
[2017-08-15] MEDS ORDERED: MAG HYDROX/AL HYDROX/SIMETH ES 30 ML SUSPENSION UDCUP PO PRN (12:45)
[2017-08-15] MEDS ORDERED: LOPERAMIDE HCL 2 MG CAPSULE PO PRN (12:45)
[2017-08-15 16:00] VITALS: BP 133/75
[2017-08-15] MEDS ORDERED: PALIPERIDONE PALMITATE 234 MG/1.5 ML SYRINGE IM ONE (16:00)
[2017-08-15] MEDS: LORazepam 2 MG TABLET PO PRN (16:13)
[2017-08-15] MEDS: THIAMINE HCL 100 MG TABLET PO SCH (16:13)
[2017-08-15] MEDS: DIVALPROEX SODIUM 500 MG ER TABLET PO SCH (20:37)
[2017-08-15] MEDS ORDERED: PALIPERIDONE 3 MG ER TABLET PO SCH (21:00)
[2017-08-16 06:26] VITALS: BP 106/67
[2017-08-16] MEDS: MULTIVITAMINS WITH MINERALS, THERAPEUTIC TABLET PO SCH (08:35)
[2017-08-16] MEDS: FOLIC ACID 1 MG TABLET PO SCH (08:35)
[2017-08-16] MEDS: THIAMINE HCL 100 MG TABLET PO SCH ×2 (08:35→16:25)
[2017-08-16] MEDS: NALTREXONE HCL 50 MG TABLET PO SCH (08:35)
[2017-08-16 08:38] VITALS: BP 115/66
[2017-08-16 09:59] LABS: CHOL/HDL RATIO 4.3 (4.2-7.3)
[2017-08-16 16:05] VITALS: BP 112/69
[2017-08-16] MEDS: LORazepam 2 MG TABLET PO PRN (16:25)
[2017-08-16] MEDS: HydrOXYzine PAMOATE 50 MG CAPSULE PO PRN (17:24)
[2017-08-16] MEDS: PALIPERIDONE 1.5 MG ER TABLET PO PRN (17:24)
[2017-08-16] MEDS: DIVALPROEX SODIUM 500 MG ER TABLET PO SCH (20:46)
[2017-08-17 06:18] VITALS: BP 109/67
[2017-08-17 08:27] VITALS: BP 100/64
[2017-08-17] MEDS: LORazepam 2 MG TABLET PO PRN ×2 (08:29→17:04)
[2017-08-17] MEDS: NALTREXONE HCL 50 MG TABLET PO SCH (08:29)
[2017-08-17] MEDS: THIAMINE HCL 100 MG TABLET PO SCH ×2 (08:29→17:04)
[2017-08-17] MEDS: HydrOXYzine PAMOATE 50 MG CAPSULE PO PRN ×2 (08:29→17:04)
[2017-08-17] MEDS: MULTIVITAMINS WITH MINERALS, THERAPEUTIC TABLET PO SCH (08:29)
[2017-08-17] MEDS: FOLIC ACID 1 MG TABLET PO SCH (08:29)
[2017-08-17] MEDS ORDERED: BISACODYL 5 MG EC TABLET PO PRN (09:00)
[2017-08-17 16:04] VITALS: BP 124/67
[2017-08-17] MEDS: ZOLPIDEM TARTRATE 10 MG TABLET PO PRN (20:41)
[2017-08-17] MEDS: DIVALPROEX SODIUM 500 MG ER TABLET PO SCH (20:41)
[2017-08-18 06:17] VITALS: BP 112/63
[2017-08-18 08:09] VITALS: BP 118/68
[2017-08-18] MEDS: NALTREXONE HCL 50 MG TABLET PO SCH (08:26)
[2017-08-18] MEDS: THIAMINE HCL 100 MG TABLET PO SCH ×2 (08:26→16:43)
[2017-08-18] MEDS: MULTIVITAMINS WITH MINERALS, THERAPEUTIC TABLET PO SCH (08:26)
[2017-08-18] MEDS: FOLIC ACID 1 MG TABLET PO SCH (08:26)
[2017-08-18 16:25] VITALS: BP 132/86
[2017-08-18] MEDS: PALIPERIDONE 1.5 MG ER TABLET PO PRN (16:43)
[2017-08-18] MEDS: LORazepam 2 MG TABLET PO PRN (16:43)
[2017-08-18] MEDS: DIVALPROEX SODIUM 500 MG ER TABLET PO SCH (20:25)
[2017-08-18] MEDS: ZOLPIDEM TARTRATE 10 MG TABLET PO PRN (22:27)
[2017-08-19 01:40] VITALS: BP 127/81
[2017-08-19 08:36] VITALS: BP 120/71
[2017-08-19] MEDS ORDERED: PALIPERIDONE PALMITATE 156 MG/ML SYRINGE IM ONE (09:00)
[2017-08-19] MEDS: MULTIVITAMINS WITH MINERALS, THERAPEUTIC TABLET PO SCH (09:31)
[2017-08-19] MEDS: THIAMINE HCL 100 MG TABLET PO SCH ×2 (09:32→16:33)
[2017-08-19] MEDS: LORazepam 2 MG TABLET PO PRN ×3 (09:32→21:07)
[2017-08-19] MEDS: NALTREXONE HCL 50 MG TABLET PO SCH (09:32)
[2017-08-19] MEDS: FOLIC ACID 1 MG TABLET PO SCH (09:32)
[2017-08-19 16:21] VITALS: BP 145/73
[2017-08-19] MEDS: PALIPERIDONE 1.5 MG ER TABLET PO PRN (16:33)
[2017-08-19] MEDS: DIVALPROEX SODIUM 500 MG ER TABLET PO SCH (20:11)
[2017-08-19] MEDS: ZOLPIDEM TARTRATE 10 MG TABLET PO PRN (21:07)
[2017-08-20 08:08] VITALS: BP 123/70
[2017-08-20] MEDS: THIAMINE HCL 100 MG TABLET PO SCH ×2 (08:43→17:06)
[2017-08-20] MEDS: MULTIVITAMINS WITH MINERALS, THERAPEUTIC TABLET PO SCH (08:43)
[2017-08-20] MEDS: FOLIC ACID 1 MG TABLET PO SCH (08:43)
[2017-08-20] MEDS: NALTREXONE HCL 50 MG TABLET PO SCH (08:43)
[2017-08-20] MEDS ORDERED: DIVA500T52 PO (15:12)
[2017-08-20] MEDS ORDERED: NALT50TA PO (15:12)
[2017-08-20 16:09] VITALS: BP 138/83
[2017-08-20] MEDS: PALIPERIDONE 1.5 MG ER TABLET PO PRN (17:06)
[2017-08-20] MEDS: LORazepam 2 MG TABLET PO PRN (17:06)
[2017-08-20] MEDS: ZOLPIDEM TARTRATE 10 MG TABLET PO PRN (21:01)
[2017-08-20] MEDS: DIVALPROEX SODIUM 500 MG ER TABLET PO SCH (21:01)
[2017-08-21 03:55] VITALS: BP 138/72
[2017-08-21] MEDS: FOLIC ACID 1 MG TABLET PO SCH (08:35)
[2017-08-21] MEDS: LORazepam 2 MG TABLET PO PRN (08:35)
[2017-08-21] MEDS: THIAMINE HCL 100 MG TABLET PO SCH (08:35)
[2017-08-21] MEDS: NALTREXONE HCL 50 MG TABLET PO SCH (08:35)
[2017-08-21] MEDS: MULTIVITAMINS WITH MINERALS, THERAPEUTIC TABLET PO SCH (08:35)
[2017-08-21 08:42] VITALS: BP 124/88
[2017-08-21] MEDS ORDERED: PALI156D IM (09:59)
== END 2017-08-21 15:37 | disposition home or self-care (01) | DRG 885 ==
LOC: EMS 22:57 → B3A 08-15 09:47
PROVIDERS: ADMIT Psychiatry & Neurology Psychiatry; ATTEND Psychiatry & Neurology Psychiatry
DX: F25.9 Schizoaffective disorder, unspecified (principal); Z91.14 Patient's other noncompliance with medication regimen; D64.9 Anemia, unspecified; D72.829 Elevated white blood cell count, unspecified; E55.9 Vitamin D deficiency, unspecified; I10 Essential (primary) hypertension; K59.00 Constipation, unspecified; F17.200 Nicotine dependence, unspecified, uncomplicated; Z79.899 Other long term (current) drug therapy
CPT/HCPCS: 99285; G0480; G0481; J3420

== ENCOUNTER 2017-09-03 22:52 | Inpatient (IN) | payer MEDICARE ==
[~2017-09-03] VITALS: Ht 172.7 cm; Wt 129.8 kg
[~2017-09-03 22:52] MED LIST changes: -NALT50TA6 PO; -OLAN10TA22 PO; -OLAN10TA6 PO; +PALI156D IM
[2017-09-04 00:01] LABS: BASOPHILS % (AUTO) 0.4 % (0.0-2.0); EOSINOPHILS % (AUTO) 1.9 % (1.0-6.0); HEMATOCRIT 39.7 % (41-53); HEMOGLOBIN 13.7 g/dL (13.5-17.5); LYMPHOCYTES # (AUTO) 2.3 K/uL (1.0-4.8); LYMPHOCYTES % (AUTO) 21.7 % (22.0-44.0); MEAN CORPUSCULAR HEMOGLOBIN 29.9 pg (26.0-34.0); MEAN CORPUSCULAR HGB CONC 34.6 G/dL (31.0-37.0); MEAN CORPUSCULAR VOLUME 87 fL (80-100); NEUTROPHILS # (AUTO) 7.2 K/uL (1.8-7.7); PLATELET COUNT (AUTO) 293 K/uL (150-450); RED BLOOD CELL COUNT(AUTO) 4.59 MIL/uL (4.50-5.90); RED CELL DISTRIBUTION WIDTH 14.4 % (11.5-14.5)
[2017-09-04 00:17] LABS: ANION GAP 6 mmol/L (8-16); CALCIUM, TOTAL 8.8 mg/dL (8.8-10.5); CARBON DIOXIDE 29 mmol/L (22-29); CHLORIDE 103 mmol/L (98-107); CREATININE 0.95 mg/dL (0.60-1.30); GLOMERULAR FILTR. RATE CALC > 60 mL/min (>60); GLUCOSE,RANDOM 110 mg/dL (70-110); POTASSIUM 4.1 mmol/L (3.5-5.1); SODIUM SERUM 138 mmol/L (136-145); UREA NITROGEN, BLOOD 13 mg/dL (7-18)
[2017-09-04 00:24] LABS: ALANINE AMINOTRANSFERASE 27 U/L (12-78); ALBUMIN 3.5 g/dL (3.4-5.0); ALKALINE PHOSPHATASE 87 U/L (46-116); ASPARTATE AMINOTRANSFERASE 19 U/L (15-37); BILIRUBIN,TOTAL 0.2 mg/dL (0.1-1.0); TOTAL PROTEIN, SERUM 7.5 g/dL (6.4-8.2)
[2017-09-04 06:11] LABS: VALPROIC ACID 10 mcg/mL (50-100)
[2017-09-04] MEDS ORDERED: ZOLPIDEM TARTRATE 10 MG TABLET PO PRN (07:00)
[2017-09-04] MEDS ORDERED: HALOPERIDOL 5 MG TABLET PO PRN (07:00)
[2017-09-04 10:50] VITALS: BP 121/75
[2017-09-04 16:04] VITALS: BP 125/68
[2017-09-04] MEDS ORDERED: PROMETHAZINE HCL 25 MG TABLET PO PRN (17:15)
[2017-09-04] MEDS ORDERED: MAG HYDROX/AL HYDROX/SIMETH ES 30 ML SUSPENSION UDCUP PO PRN (17:15)
[2017-09-04] MEDS ORDERED: HydrOXYzine PAMOATE 50 MG CAPSULE PO PRN (17:15)
[2017-09-04] MEDS ORDERED: LOPERAMIDE HCL 2 MG CAPSULE PO PRN ×2 (17:15→20:15)
[2017-09-04] MEDS ORDERED: GuaiFENesin/D-METHORPHAN [SUGAR-FREE] 200-20MG/10 ML SYRUP UDCUP PO PRN (17:15)
[2017-09-04] MEDS ORDERED: PALIPERIDONE PALMITATE 234 MG/1.5 ML SYRINGE IM ONE (17:15)
[2017-09-04] MEDS ORDERED: ACETAMINOPHEN 325 MG TABLET PO PRN (17:15)
[2017-09-04] MEDS ORDERED: PALIPERIDONE 1.5 MG ER TABLET PO PRN (17:15)
[2017-09-04] MEDS ORDERED: MAGNESIUM HYDROXIDE SUSPENSION 30 ML UDCUP PO PRN (17:15)
[2017-09-04] MEDS ORDERED: BENZOCAINE/MENTHOL LOZENGE MM PRN (20:15)
[2017-09-04] MEDS ORDERED: PETROLATUM,WHITE 71 GM JELLY TP PRN (20:15)
[2017-09-04] MEDS ORDERED: CloNIDine HCL 0.1 MG TABLET PO PRN (20:15)
[2017-09-04] MEDS ORDERED: BACITRACIN 28.4 GM OINTMENT TP PRN (20:15)
[2017-09-04] MEDS ORDERED: ONDANSETRON HCL 4 MG TABLET PO PRN (20:15)
[2017-09-04] MEDS ORDERED: ALBUTEROL SULFATE HFA 90 MCG/PUFF 8 GM INHALER IH PRN (20:15)
[2017-09-04] MEDS ORDERED: IBUPROFEN 600 MG TABLET PO PRN (20:15)
[2017-09-04] MEDS: LORazepam 2 MG TABLET PO PRN (20:53)
[2017-09-04] MEDS ORDERED: PALIPERIDONE 3 MG ER TABLET PO SCH (21:00)
[2017-09-05 06:35] VITALS: BP 131/81
[2017-09-05 08:00] VITALS: BP 117/64
[2017-09-05 08:51] LABS: CHOL/HDL RATIO 3.9 (4.2-7.3)
[2017-09-05] MEDS: OMEPRAZOLE 20 MG CAPSULE PO SCH (09:14)
[2017-09-05] MEDS: FOLIC ACID 1 MG TABLET PO SCH (09:15)
[2017-09-05] MEDS: DOCUSATE SODIUM 100 MG CAPSULE PO SCH (09:15)
[2017-09-05] MEDS: LORazepam 2 MG TABLET PO PRN (09:15)
[2017-09-05] MEDS: THIAMINE HCL 100 MG TABLET PO SCH ×2 (09:15→17:28)
[2017-09-05] MEDS: MULTIVITAMINS WITH MINERALS, THERAPEUTIC TABLET PO SCH (09:15)
[2017-09-05 16:08] VITALS: BP 112/70
[2017-09-06 05:33] VITALS: BP 135/62
[2017-09-06 08:03] VITALS: BP 116/72
[2017-09-06] MEDS: FOLIC ACID 1 MG TABLET PO SCH (08:56)
[2017-09-06] MEDS: DOCUSATE SODIUM 100 MG CAPSULE PO SCH (08:56)
[2017-09-06] MEDS: OMEPRAZOLE 20 MG CAPSULE PO SCH (08:56)
[2017-09-06] MEDS: THIAMINE HCL 100 MG TABLET PO SCH (08:56)
[2017-09-06] MEDS: MULTIVITAMINS WITH MINERALS, THERAPEUTIC TABLET PO SCH (08:56)
[2017-09-06] MEDS ORDERED: PALI156D IM ×2 (11:54→14:13)
[2017-09-06] MEDS ORDERED: NALT50TA6 PO (11:54)
[2017-09-06] MEDS ORDERED: MUPIROCIN CALCIUM 2% 22 GM OINTMENT NASAL SCH (17:00)
[2017-09-07] MEDS ORDERED: NALTREXONE HCL 50 MG TABLET PO SCH (09:00)
[2017-09-08] MEDS ORDERED: PALIPERIDONE PALMITATE 156 MG/ML SYRINGE IM ONE (09:00)
== END 2017-09-06 15:10 | disposition home or self-care (01) | DRG 885 ==
LOC: EMS 22:53 → B3A 09-04 09:18
PROVIDERS: ADMIT Psychiatry & Neurology Psychiatry; ATTEND Psychiatry & Neurology Psychiatry
DX: F25.9 Schizoaffective disorder, unspecified (principal); N39.0 Urinary tract infection, site not specified; I10 Essential (primary) hypertension; J45.909 Unspecified asthma, uncomplicated; E78.5 Hyperlipidemia, unspecified; E78.1 Pure hyperglyceridemia; E55.9 Vitamin D deficiency, unspecified; K21.9 Gastro-esophageal reflux disease without esophagitis; F17.210 Nicotine dependence, cigarettes, uncomplicated; F12.90 Cannabis use, unspecified, uncomplicated; F15.90 Other stimulant use, unspecified, uncomplicated; F32.9 Major depressive disorder, single episode, unspecified; K59.00 Constipation, unspecified; Z22.322 Carrier or suspected carrier of Methicillin resistant Staphylococcus aureus; Z87.440 Personal history of urinary (tract) infections; Z91.19 Patient's noncompliance with other medical treatment and regimen; Z91.14 Patient's other noncompliance with medication regimen
CPT/HCPCS: 87081; 99285; G0480

== ENCOUNTER 2017-10-15 10:34 | Inpatient (IN) | payer MEDICARE, MEDICAID ==
[~2017-10-15] VITALS: Ht 182.9 cm; Wt 125.7 kg
[~2017-10-15 10:34] MED LIST changes: -DIVA500T52 PO; +NALT50TA6 PO
[2017-10-15] MEDS ORDERED: HALO1 PO (11:03)
[2017-10-15] MEDS ORDERED: BENZ0.5T44 PO (11:03)
[2017-10-15] MEDS ORDERED: DIVA125T32 PO (11:03)
[2017-10-15 11:29] LABS: AMPHET/METH SCREEN,URINE NEGATIVE (NEGATIVE); BARBITURATE SCREEN, URINE NEGATIVE (NEGATIVE); BENZODIAZEPINES SCREEN,URINE NEGATIVE (NEGATIVE); CANNABINOID SCREEN,URINE NEGATIVE (NEGATIVE); COCAINE SCREEN,URINE NEGATIVE (NEGATIVE); METHADONE SCREEN, URINE NEGATIVE (NEGATIVE); OPIATE SCREEN,URINE NEGATIVE (NEGATIVE)
[2017-10-15 11:30] LABS: PHENCYCLIDINE SCREEN,URINE NEGATIVE (NEGATIVE)
[2017-10-15 11:46] LABS: BASOPHILS % (AUTO) 0.4 % (0.0-2.0); EOSINOPHILS % (AUTO) 1.8 % (1.0-6.0); HEMATOCRIT 39.9 % (41-53); HEMOGLOBIN 13.6 g/dL (13.5-17.5); LYMPHOCYTES # (AUTO) 2.2 K/uL (1.0-4.8); LYMPHOCYTES % (AUTO) 18.9 % (22.0-44.0); MEAN CORPUSCULAR HEMOGLOBIN 28.7 pg (26.0-34.0); MEAN CORPUSCULAR VOLUME 85 fL (80-100); MONOCYTES # (AUTO) 1.1 K/uL (0.1-1.0); MONOCYTES % (AUTO) 9.4 % (2.0-9.0); NEUTROPHILS % (AUTO) 69.5 % (40.0-70.0); PLATELET COUNT (AUTO) 307 K/uL (150-450); RED BLOOD CELL COUNT(AUTO) 4.72 MIL/uL (4.50-5.90); RED CELL DISTRIBUTION WIDTH 14.5 % (11.5-14.5)
[2017-10-15 12:03] LABS: ANION GAP 8 mmol/L (8-16); CALCIUM, TOTAL 8.9 mg/dL (8.8-10.5); CARBON DIOXIDE 26 mmol/L (22-29); CHLORIDE 103 mmol/L (98-107); CREATININE 0.98 mg/dL (0.60-1.30); GLOMERULAR FILTR. RATE CALC > 60 mL/min (>60); GLUCOSE,RANDOM 90 mg/dL (70-110); POTASSIUM 3.7 mmol/L (3.5-5.1); SODIUM SERUM 137 mmol/L (136-145); UREA NITROGEN, BLOOD 12 mg/dL (7-18)
[2017-10-15 12:10] LABS: ALANINE AMINOTRANSFERASE 28 U/L (12-78); ALBUMIN 3.3 g/dL (3.4-5.0); ALKALINE PHOSPHATASE 82 U/L (46-116); ASPARTATE AMINOTRANSFERASE 19 U/L (15-37); BILIRUBIN,TOTAL 0.2 mg/dL (0.1-1.0); TOTAL PROTEIN, SERUM 6.9 g/dL (6.4-8.2); VALPROIC ACID 6 mcg/mL (50-100)
[2017-10-15] MEDS ORDERED: OLANZapine 5 MG RAPDIS TABLET PO PRN (15:45)
[2017-10-15] MEDS ORDERED: GuaiFENesin/D-METHORPHAN [SUGAR-FREE] 200-20MG/10 ML SYRUP UDCUP PO PRN (15:45)
[2017-10-15] MEDS ORDERED: PROMETHAZINE HCL 25 MG TABLET PO PRN (15:45)
[2017-10-15] MEDS ORDERED: ACETAMINOPHEN 325 MG TABLET PO PRN (15:45)
[2017-10-15] MEDS ORDERED: ZOLPIDEM TARTRATE 10 MG TABLET PO PRN (15:45)
[2017-10-15] MEDS ORDERED: LOPERAMIDE HCL 2 MG CAPSULE PO PRN (15:45)
[2017-10-15] MEDS ORDERED: MAGNESIUM HYDROXIDE SUSPENSION 30 ML UDCUP PO PRN (15:45)
[2017-10-15] MEDS ORDERED: MAG HYDROX/AL HYDROX/SIMETH ES 30 ML SUSPENSION UDCUP PO PRN (15:45)
[2017-10-15] MEDS ORDERED: HydrOXYzine PAMOATE 50 MG CAPSULE PO PRN (15:45)
[2017-10-15] MEDS: PALIPERIDONE 6 MG ER TABLET PO SCH (21:22)
[2017-10-15] MEDS: THIAMINE HCL 100 MG TABLET PO SCH (21:22)
[2017-10-16 07:50] LABS: BASOPHILS % (AUTO) 0.5 % (0.0-2.0); EOSINOPHILS % (AUTO) 2.6 % (1.0-6.0); HEMATOCRIT 40.4 % (41-53); HEMOGLOBIN 13.8 g/dL (13.5-17.5); LYMPHOCYTES # (AUTO) 1.8 K/uL (1.0-4.8); MEAN CORPUSCULAR HGB CONC 34.1 G/dL (31.0-37.0); MEAN CORPUSCULAR VOLUME 85 fL (80-100); MONOCYTES # (AUTO) 0.4 K/uL (0.1-1.0); MONOCYTES % (AUTO) 5.1 % (2.0-9.0); NEUTROPHILS # (AUTO) 6.1 K/uL (1.8-7.7); NEUTROPHILS % (AUTO) 70.8 % (40.0-70.0); PLATELET COUNT (AUTO) 294 K/uL (150-450); RED BLOOD CELL COUNT(AUTO) 4.74 MIL/uL (4.50-5.90); RED CELL DISTRIBUTION WIDTH 14.5 % (11.5-14.5)
[2017-10-16 08:12] LABS: ALANINE AMINOTRANSFERASE 25 U/L (12-78); ALKALINE PHOSPHATASE 84 U/L (46-116); ANION GAP 8 mmol/L (8-16); ASPARTATE AMINOTRANSFERASE 15 U/L (15-37); BILIRUBIN,TOTAL 0.5 mg/dL (0.1-1.0); CALCIUM, TOTAL 8.3 mg/dL (8.8-10.5); CARBON DIOXIDE 26 mmol/L (22-29); CHLORIDE 105 mmol/L (98-107); GLOMERULAR FILTR. RATE CALC > 60 mL/min (>60); GLUCOSE,RANDOM 141 mg/dL (70-110); POTASSIUM 3.6 mmol/L (3.5-5.1); SODIUM SERUM 139 mmol/L (136-145); TOTAL PROTEIN, SERUM 6.1 g/dL (6.4-8.2); UREA NITROGEN, BLOOD 12 mg/dL (7-18)
[2017-10-16] MEDS: NALTREXONE HCL 50 MG TABLET PO SCH (09:00)
[2017-10-16] MEDS: MULTIVITAMINS WITH MINERALS, THERAPEUTIC TABLET PO SCH (09:00)
[2017-10-16] MEDS: FOLIC ACID 1 MG TABLET PO SCH (09:00)
[2017-10-16] MEDS: THIAMINE HCL 100 MG TABLET PO SCH ×2 (09:00→16:40)
[2017-10-16] MEDS ORDERED: PALIPERIDONE PALMITATE 234 MG/1.5 ML SYRINGE IM ONE (09:00)
[2017-10-16] MEDS: LORazepam 2 MG TABLET PO PRN (16:40)
[2017-10-16 18:32] VITALS: BP 126/78
[2017-10-16] MEDS: PALIPERIDONE 6 MG ER TABLET PO SCH (20:35)
[2017-10-17 08:05] VITALS: BP 133/87
[2017-10-17] MEDS: MULTIVITAMINS WITH MINERALS, THERAPEUTIC TABLET PO SCH (10:04)
[2017-10-17] MEDS: FOLIC ACID 1 MG TABLET PO SCH (10:04)
[2017-10-17] MEDS: THIAMINE HCL 100 MG TABLET PO SCH ×2 (10:04→17:43)
[2017-10-17] MEDS: NALTREXONE HCL 50 MG TABLET PO SCH (11:48)
[2017-10-18] MEDS: MULTIVITAMINS WITH MINERALS, THERAPEUTIC TABLET PO SCH (08:03)
[2017-10-18] MEDS: FOLIC ACID 1 MG TABLET PO SCH (08:03)
[2017-10-18] MEDS: NALTREXONE HCL 50 MG TABLET PO SCH (08:03)
[2017-10-18] MEDS: THIAMINE HCL 100 MG TABLET PO SCH ×2 (08:03→16:48)
[2017-10-18 08:15] VITALS: BP 140/100
[2017-10-18] MEDS ORDERED: CloNIDine HCL 0.1 MG TABLET PO PRN (11:15)
[2017-10-18] MEDS: PALIPERIDONE 3 MG ER TABLET PO PRN (13:10)
[2017-10-18] MEDS: LORazepam 2 MG TABLET PO PRN (13:11)
[2017-10-18 16:30] VITALS: BP 126/82
[2017-10-19 08:12] VITALS: BP 126/88
[2017-10-19] MEDS: MULTIVITAMINS WITH MINERALS, THERAPEUTIC TABLET PO SCH (08:52)
[2017-10-19] MEDS: FOLIC ACID 1 MG TABLET PO SCH (08:52)
[2017-10-19] MEDS: LORazepam 2 MG TABLET PO PRN ×2 (08:52→16:08)
[2017-10-19] MEDS: THIAMINE HCL 100 MG TABLET PO SCH ×2 (08:52→16:09)
[2017-10-19] MEDS: NALTREXONE HCL 50 MG TABLET PO SCH (08:52)
[2017-10-19] MEDS: PALIPERIDONE 3 MG ER TABLET PO PRN ×2 (08:52→16:08)
[2017-10-19 16:16] VITALS: BP 136/83
[2017-10-20] MEDS: FOLIC ACID 1 MG TABLET PO SCH (08:23)
[2017-10-20] MEDS: LORazepam 2 MG TABLET PO PRN (08:23)
[2017-10-20] MEDS: MULTIVITAMINS WITH MINERALS, THERAPEUTIC TABLET PO SCH (08:24)
[2017-10-20] MEDS: THIAMINE HCL 100 MG TABLET PO SCH ×2 (08:24→16:14)
[2017-10-20] MEDS: NALTREXONE HCL 50 MG TABLET PO SCH (08:24)
[2017-10-20] MEDS: PALIPERIDONE 3 MG ER TABLET PO PRN (08:25)
[2017-10-20 08:28] VITALS: BP 136/72
[2017-10-20] MEDS ORDERED: PALIPERIDONE PALMITATE 156 MG/ML SYRINGE IM ONE (09:00)
[2017-10-21] MEDS: PALIPERIDONE 3 MG ER TABLET PO PRN (07:53)
[2017-10-21] MEDS: LORazepam 2 MG TABLET PO PRN (07:53)
[2017-10-21] MEDS: MULTIVITAMINS WITH MINERALS, THERAPEUTIC TABLET PO SCH (08:14)
[2017-10-21] MEDS: THIAMINE HCL 100 MG TABLET PO SCH ×2 (08:14→16:10)
[2017-10-21] MEDS: NALTREXONE HCL 50 MG TABLET PO SCH (08:14)
[2017-10-21] MEDS: FOLIC ACID 1 MG TABLET PO SCH (08:14)
[2017-10-21 08:49] VITALS: BP 136/74
[2017-10-21 16:28] VITALS: BP 139/92
[2017-10-22 08:14] VITALS: BP 138/62
[2017-10-22] MEDS: THIAMINE HCL 100 MG TABLET PO SCH ×2 (09:23→17:19)
[2017-10-22] MEDS: MULTIVITAMINS WITH MINERALS, THERAPEUTIC TABLET PO SCH (09:23)
[2017-10-22] MEDS: FOLIC ACID 1 MG TABLET PO SCH (09:23)
[2017-10-22] MEDS: NALTREXONE HCL 50 MG TABLET PO SCH (09:24)
[2017-10-22] MEDS ORDERED: HALOPERIDOL LACTATE 5 MG/ML VIAL IM ONE (14:30)
[2017-10-22] MEDS ORDERED: DiphenhydrAMINE HCL 50 MG/ML VIAL IM ONE (14:30)
[2017-10-22] MEDS ORDERED: LORazepam 2 MG/ML VIAL IM ONE (14:30)
[2017-10-22 16:07] VITALS: BP 107/57
[2017-10-22] MEDS: NICOTINE 21 MG/24 HOUR PATCH TD SCH (16:30)
[2017-10-22] MEDS: OLANZapine 5 MG RAPDIS TABLET PO SCH (20:40)
[2017-10-23] MEDS: THIAMINE HCL 100 MG TABLET PO SCH ×2 (08:14→17:46)
[2017-10-23] MEDS: MULTIVITAMINS WITH MINERALS, THERAPEUTIC TABLET PO SCH (08:14)
[2017-10-23] MEDS: NALTREXONE HCL 50 MG TABLET PO SCH (08:14)
[2017-10-23] MEDS: FOLIC ACID 1 MG TABLET PO SCH (08:14)
[2017-10-23] MEDS: NICOTINE 21 MG/24 HOUR PATCH TD SCH (09:00)
[2017-10-23 09:08] VITALS: BP 106/72
[2017-10-23 16:00] VITALS: BP 135/92
[2017-10-23] MEDS: OLANZapine 5 MG RAPDIS TABLET PO SCH (20:46)
[2017-10-24] MEDS: FOLIC ACID 1 MG TABLET PO SCH (08:21)
[2017-10-24] MEDS: MULTIVITAMINS WITH MINERALS, THERAPEUTIC TABLET PO SCH (08:21)
[2017-10-24] MEDS: NICOTINE 21 MG/24 HOUR PATCH TD SCH (08:22)
[2017-10-24] MEDS: THIAMINE HCL 100 MG TABLET PO SCH (08:22)
[2017-10-24] MEDS: NALTREXONE HCL 50 MG TABLET PO SCH (08:22)
[2017-10-24 09:07] VITALS: BP 119/79
[2017-10-24 09:13] VITALS: BP 119/79
[2017-10-24 16:00] VITALS: BP 131/71
[2017-10-24] MEDS: OLANZapine 5 MG RAPDIS TABLET PO SCH (21:43)
[2017-10-25 08:19] VITALS: BP 111/63
[2017-10-25] MEDS: FOLIC ACID 1 MG TABLET PO SCH (08:29)
[2017-10-25] MEDS: MULTIVITAMINS WITH MINERALS, THERAPEUTIC TABLET PO SCH (08:29)
[2017-10-25] MEDS: THIAMINE HCL 100 MG TABLET PO SCH (08:30)
[2017-10-25] MEDS: NALTREXONE HCL 50 MG TABLET PO SCH (08:31)
[2017-10-25] MEDS: NICOTINE 21 MG/24 HOUR PATCH TD SCH (08:35)
[2017-10-25 13:02] VITALS: BP 111/63
[2017-10-25 18:18] VITALS: BP 121/76
[2017-10-25] MEDS: OLANZapine 5 MG RAPDIS TABLET PO SCH (21:48)
[2017-10-26 08:17] VITALS: BP 123/69
[2017-10-26] MEDS: NALTREXONE HCL 50 MG TABLET PO SCH (08:45)
[2017-10-26] MEDS: MULTIVITAMINS WITH MINERALS, THERAPEUTIC TABLET PO SCH (08:45)
[2017-10-26] MEDS: NICOTINE 21 MG/24 HOUR PATCH TD SCH (08:46)
[2017-10-26] MEDS: LORazepam 2 MG TABLET PO PRN (13:57)
[2017-10-26] MEDS: OLANZapine 5 MG RAPDIS TABLET PO PRN (13:57)
[2017-10-26 16:34] VITALS: BP 143/81
[2017-10-26] MEDS: OLANZapine 5 MG RAPDIS TABLET PO SCH (20:17)
[2017-10-27] MEDS: NALTREXONE HCL 50 MG TABLET PO SCH (08:17)
[2017-10-27] MEDS: NICOTINE 21 MG/24 HOUR PATCH TD SCH (08:17)
[2017-10-27] MEDS: MULTIVITAMINS WITH MINERALS, THERAPEUTIC TABLET PO SCH (08:17)
[2017-10-27] MEDS: LORazepam 2 MG TABLET PO PRN (08:18)
[2017-10-27 08:25] VITALS: BP 136/78
[2017-10-27 16:20] VITALS: BP 139/91
[2017-10-27] MEDS: OLANZapine 5 MG RAPDIS TABLET PO SCH (20:21)
[2017-10-28 08:24] VITALS: BP 136/84
[2017-10-28] MEDS: NICOTINE 21 MG/24 HOUR PATCH TD SCH (09:00)
[2017-10-28] MEDS: MULTIVITAMINS WITH MINERALS, THERAPEUTIC TABLET PO SCH (09:20)
[2017-10-28] MEDS: NALTREXONE HCL 50 MG TABLET PO SCH (09:20)
[2017-10-28] MEDS: OLANZapine 5 MG RAPDIS TABLET PO PRN (12:52)
[2017-10-28] MEDS: LORazepam 2 MG TABLET PO PRN (12:52)
[2017-10-28 16:53] VITALS: BP 141/93
[2017-10-28] MEDS: OLANZapine 5 MG RAPDIS TABLET PO SCH (20:17)
[2017-10-29 08:11] VITALS: BP 117/89
[2017-10-29] MEDS: NICOTINE 21 MG/24 HOUR PATCH TD SCH (09:00)
[2017-10-29] MEDS: NALTREXONE HCL 50 MG TABLET PO SCH (09:50)
[2017-10-29] MEDS: MULTIVITAMINS WITH MINERALS, THERAPEUTIC TABLET PO SCH (09:50)
[2017-10-29 16:04] VITALS: BP 120/79
[2017-10-29] MEDS: OLANZapine 5 MG RAPDIS TABLET PO SCH (20:05)
[2017-10-30 07:09] LABS: BASOPHILS % (AUTO) 0.3 % (0.0-2.0); EOSINOPHILS % (AUTO) 3.7 % (1.0-6.0); HEMATOCRIT 40.1 % (41-53); HEMOGLOBIN 13.6 g/dL (13.5-17.5); LYMPHOCYTES # (AUTO) 2.8 K/uL (1.0-4.8); LYMPHOCYTES % (AUTO) 29.9 % (22.0-44.0); MEAN CORPUSCULAR HEMOGLOBIN 28.6 pg (26.0-34.0); MEAN CORPUSCULAR HGB CONC 33.8 G/dL (31.0-37.0); MEAN CORPUSCULAR VOLUME 85 fL (80-100); MONOCYTES # (AUTO) 0.8 K/uL (0.1-1.0); MONOCYTES % (AUTO) 8.8 % (2.0-9.0); NEUTROPHILS # (AUTO) 5.3 K/uL (1.8-7.7); NEUTROPHILS % (AUTO) 57.3 % (40.0-70.0); PLATELET COUNT (AUTO) 319 K/uL (150-450); RED BLOOD CELL COUNT(AUTO) 4.74 MIL/uL (4.50-5.90); RED CELL DISTRIBUTION WIDTH 14.1 % (11.5-14.5)
[2017-10-30 07:26] LABS: ALANINE AMINOTRANSFERASE 22 U/L (12-78); ALBUMIN 3.1 g/dL (3.4-5.0); ALKALINE PHOSPHATASE 90 U/L (46-116); ASPARTATE AMINOTRANSFERASE 15 U/L (15-37); BILIRUBIN,TOTAL 0.3 mg/dL (0.1-1.0); TOTAL PROTEIN, SERUM 6.8 g/dL (6.4-8.2); VALPROIC ACID 3 mcg/mL (50-100)
[2017-10-30 07:28] LABS: BILIRUBIN,DIRECT < 0.05 mg/dL (0.00-0.20)
[2017-10-30 08:32] VITALS: BP 124/61
[2017-10-30] MEDS: MULTIVITAMINS WITH MINERALS, THERAPEUTIC TABLET PO SCH (08:38)
[2017-10-30] MEDS: NALTREXONE HCL 50 MG TABLET PO SCH (08:38)
[2017-10-30] MEDS: NICOTINE 21 MG/24 HOUR PATCH TD SCH (09:00)
[2017-10-30] MEDS: OLANZapine 5 MG RAPDIS TABLET PO PRN (12:31)
[2017-10-30] MEDS ORDERED: TUBERCULIN, PURIFIED PROTEIN DERIVATIVE 5 TU/0.1 ML SYG ID ONE (14:15)
[2017-10-30 17:56] VITALS: BP 116/88
[2017-10-30] MEDS: OLANZapine 10 MG RAPDIS TABLET PO SCH (20:24)
[2017-10-31 08:17] VITALS: BP 126/77
[2017-10-31] MEDS: MULTIVITAMINS WITH MINERALS, THERAPEUTIC TABLET PO SCH (08:27)
[2017-10-31] MEDS: NALTREXONE HCL 50 MG TABLET PO SCH (08:27)
[2017-10-31] MEDS: NICOTINE 21 MG/24 HOUR PATCH TD SCH (09:00)
[2017-10-31 16:45] VITALS: BP 119/74
[2017-10-31] MEDS ORDERED: BISACODYL 5 MG EC TABLET PO PRN (18:00)
[2017-10-31] MEDS: OLANZapine 10 MG RAPDIS TABLET PO SCH (20:19)
[2017-11-01 08:17] VITALS: BP 108/64
[2017-11-01 08:39] VITALS: BP 108/64
[2017-11-01] MEDS: NICOTINE 21 MG/24 HOUR PATCH TD SCH (08:58)
[2017-11-01] MEDS: NALTREXONE HCL 50 MG TABLET PO SCH (08:58)
[2017-11-01] MEDS: MULTIVITAMINS WITH MINERALS, THERAPEUTIC TABLET PO SCH (08:58)
[2017-11-01] MEDS: LORazepam 2 MG TABLET PO PRN ×2 (12:00→19:58)
[2017-11-01] MEDS: OLANZapine 5 MG RAPDIS TABLET PO PRN (12:00)
[2017-11-01] MEDS ORDERED: OLAN10TA22 PO (16:19)
[2017-11-01] MEDS ORDERED: NALT50TA PO (16:19)
[2017-11-01 16:41] VITALS: BP 124/68
[2017-11-01] MEDS: OLANZapine 10 MG RAPDIS TABLET PO SCH (20:18)
[2017-11-02] MEDS: MULTIVITAMINS WITH MINERALS, THERAPEUTIC TABLET PO SCH (08:10)
[2017-11-02] MEDS: NICOTINE 21 MG/24 HOUR PATCH TD SCH (08:10)
[2017-11-02] MEDS: NALTREXONE HCL 50 MG TABLET PO SCH (08:10)
[2017-11-02 08:16] VITALS: BP 133/80
== END 2017-11-02 15:20 | disposition home or self-care (01) | DRG 885 ==
LOC: EMS 10:37 → 3EC 10-16 15:13
PROVIDERS: ADMIT Psychiatry & Neurology Psychiatry; ATTEND Psychiatry & Neurology Psychiatry
DX: F25.9 Schizoaffective disorder, unspecified (principal); R45.851 Suicidal ideations; Z91.83 Wandering in diseases classified elsewhere; D72.829 Elevated white blood cell count, unspecified; E55.9 Vitamin D deficiency, unspecified; E66.9 Obesity, unspecified; G24.9 Dystonia, unspecified; I10 Essential (primary) hypertension; K59.00 Constipation, unspecified; F32.9 Major depressive disorder, single episode, unspecified; Z68.37 Body mass index [BMI] 37.0-37.9, adult; Z65.3 Problems related to other legal circumstances; Z87.891 Personal history of nicotine dependence; Z91.19 Patient's noncompliance with other medical treatment and regimen; Z59.0 Homelessness
CPT/HCPCS: 86592; 87081; 96372; 99285; G0480; J1200; J1630; J2060

== ENCOUNTER 2018-01-18 14:09 | Emergency (ER) | payer MEDICARE, OTHER ==
[~2018-01-18] VITALS: Ht 182.9 cm; Wt 121.0 kg
[~2018-01-18 14:09] MED LIST changes: -NALT50TA6 PO; +OLAN10TA22 PO; -PALI156D IM
[2018-01-18 14:40] LABS: BASOPHILS % (AUTO) 0.4 % (0.0-2.0); EOSINOPHILS % (AUTO) 1.4 % (1.0-6.0); HEMATOCRIT 43.1 % (41-53); HEMOGLOBIN 14.7 g/dL (13.5-17.5); LYMPHOCYTES % (AUTO) 14.9 % (22.0-44.0); MEAN CORPUSCULAR HEMOGLOBIN 28.8 pg (26.0-34.0); MEAN CORPUSCULAR VOLUME 85 fL (80-100); MONOCYTES # (AUTO) 1.2 K/uL (0.1-1.0); MONOCYTES % (AUTO) 8.9 % (2.0-9.0); NEUTROPHILS % (AUTO) 74.4 % (40.0-70.0); PLATELET COUNT (AUTO) 279 K/uL (150-450); RED BLOOD CELL COUNT(AUTO) 5.11 MIL/uL (4.50-5.90); RED CELL DISTRIBUTION WIDTH 14.5 % (11.5-14.5)
[2018-01-18 14:47] LABS: ANION GAP 10 mmol/L (8-16); CALCIUM, TOTAL 8.6 mg/dL (8.8-10.5); CARBON DIOXIDE 26 mmol/L (22-29); CHLORIDE 103 mmol/L (98-107); CREATININE 0.87 mg/dL (0.60-1.30); GLOMERULAR FILTR. RATE CALC > 60 mL/min (>60); GLUCOSE,RANDOM 101 mg/dL (70-110); POTASSIUM 3.9 mmol/L (3.5-5.1); SODIUM SERUM 139 mmol/L (136-145); UREA NITROGEN, BLOOD 11 mg/dL (7-18)
[2018-01-18 14:52] LABS: ALANINE AMINOTRANSFERASE 25 U/L (12-78); ALBUMIN 3.5 g/dL (3.4-5.0); ALKALINE PHOSPHATASE 93 U/L (46-116); ASPARTATE AMINOTRANSFERASE 18 U/L (15-37); BILIRUBIN,TOTAL 0.3 mg/dL (0.1-1.0); TOTAL PROTEIN, SERUM 7.5 g/dL (6.4-8.2)
[2018-01-18 16:06] VITALS: BP 121/85
== END 2018-01-18 16:52 | disposition home or self-care (01) ==
LOC: EMS 14:10
DX: F25.9 Schizoaffective disorder, unspecified (principal); F32.9 Major depressive disorder, single episode, unspecified; I10 Essential (primary) hypertension; F17.210 Nicotine dependence, cigarettes, uncomplicated; F15.90 Other stimulant use, unspecified, uncomplicated
CPT/HCPCS: 36415; 80053; 85025; 99284; 99406; G0480

== ENCOUNTER 2018-10-27 08:19 | Inpatient (IN) | payer MEDICARE, OTHER ==
[~2018-10-27] VITALS: Ht 177.8 cm; Wt 125.2 kg
[2018-10-27] MEDS ORDERED: HALO5TAB2 PO (08:26)
[2018-10-27] MEDS ORDERED: BENZ0.5T44 PO (08:26)
[2018-10-27] MEDS ORDERED: DIVA125T32 PO (08:26)
[2018-10-27] MEDS ORDERED: HALOPERIDOL 5 MG TABLET PO ONE (11:15)
[2018-10-27 11:22] LABS: AMPHET/METH SCREEN,URINE POSITIVE (NEGATIVE); BARBITURATE SCREEN, URINE NEGATIVE (NEGATIVE); BENZODIAZEPINES SCREEN,URINE NEGATIVE (NEGATIVE); CANNABINOID SCREEN,URINE NEGATIVE (NEGATIVE); COCAINE SCREEN,URINE NEGATIVE (NEGATIVE); METHADONE SCREEN, URINE NEGATIVE (NEGATIVE); OPIATE SCREEN,URINE NEGATIVE (NEGATIVE)
[2018-10-27 11:23] LABS: PHENCYCLIDINE SCREEN,URINE NEGATIVE (NEGATIVE)
[2018-10-27 11:31] LABS: BASOPHILS % (AUTO) 0.2 % (0.0-2.0); EOSINOPHILS % (AUTO) 2.9 % (1.0-6.0); HEMOGLOBIN 11.7 g/dL (13.5-17.5); LYMPHOCYTES # (AUTO) 1.8 K/uL (1.0-4.8); LYMPHOCYTES % (AUTO) 14.6 % (22.0-44.0); MEAN CORPUSCULAR HEMOGLOBIN 28.2 pg (26.0-34.0); MEAN CORPUSCULAR HGB CONC 32.6 G/dL (31.0-37.0); MEAN CORPUSCULAR VOLUME 86 fL (80-100); MONOCYTES # (AUTO) 1.2 K/uL (0.1-1.0); MONOCYTES % (AUTO) 9.4 % (2.0-9.0); NEUTROPHILS # (AUTO) 9.2 K/uL (1.8-7.7); NEUTROPHILS % (AUTO) 72.9 % (40.0-70.0); PLATELET COUNT (AUTO) 407 K/uL (150-450); RED BLOOD CELL COUNT(AUTO) 4.17 MIL/uL (4.50-5.90); RED CELL DISTRIBUTION WIDTH 15.6 % (11.5-14.5)
[2018-10-27 11:49] LABS: ANION GAP 9 mmol/L (8-16); CARBON DIOXIDE 26 mmol/L (22-29); CHLORIDE 105 mmol/L (98-107); GLOMERULAR FILTR. RATE CALC > 60 mL/min (>60); GLUCOSE,RANDOM 105 mg/dL (70-110); POTASSIUM 3.5 mmol/L (3.5-5.1); SODIUM SERUM 140 mmol/L (136-145); UREA NITROGEN, BLOOD 13 mg/dL (7-18)
[2018-10-27 11:55] LABS: ALANINE AMINOTRANSFERASE 59 U/L (12-78); ALBUMIN 2.8 g/dL (3.4-5.0); ALKALINE PHOSPHATASE 74 U/L (46-116); ASPARTATE AMINOTRANSFERASE 34 U/L (15-37); BILIRUBIN,TOTAL 0.2 mg/dL (0.1-1.0); TOTAL PROTEIN, SERUM 7.1 g/dL (6.4-8.2)
[2018-10-27 11:56] LABS: VALPROIC ACID < 3 mcg/mL (50-100)
[2018-10-27] MEDS ORDERED: ZOLPIDEM TARTRATE 10 MG TABLET PO PRN (12:45)
[2018-10-27] MEDS ORDERED: HALOPERIDOL 5 MG TABLET PO PRN (12:45)
[2018-10-27] MEDS ORDERED: ACETAMINOPHEN 325 MG TABLET PO PRN (17:45)
[2018-10-27] MEDS ORDERED: BACITRACIN 28.4 GM OINTMENT TP PRN (17:45)
[2018-10-27] MEDS ORDERED: DOCUSATE SODIUM 100 MG CAPSULE PO PRN (17:45)
[2018-10-27] MEDS ORDERED: MAGNESIUM HYDROXIDE SUSPENSION 30 ML UDCUP PO PRN (17:45)
[2018-10-27] MEDS ORDERED: LOPERAMIDE HCL 2 MG CAPSULE PO PRN (17:45)
[2018-10-27] MEDS ORDERED: OMEPRAZOLE 20 MG CAPSULE PO PRN (17:45)
[2018-10-27] MEDS ORDERED: MAG HYDROX/AL HYDROX/SIMETH ES 30 ML SUSPENSION UDCUP PO PRN (17:45)
[2018-10-27] MEDS ORDERED: BENZOCAINE/MENTHOL LOZENGE MM PRN (17:45)
[2018-10-27] MEDS ORDERED: CloNIDine HCL 0.1 MG TABLET PO PRN (17:45)
[2018-10-27] MEDS ORDERED: PETROLATUM,WHITE 28 GM JELLY TP PRN (17:45)
[2018-10-27] MEDS ORDERED: ONDANSETRON HCL 4 MG TABLET PO PRN (17:45)
[2018-10-27] MEDS ORDERED: IBUPROFEN 600 MG TABLET PO PRN (17:45)
[2018-10-27] MEDS ORDERED: ALBUTEROL SULFATE HFA 90 MCG/PUFF 8 GM INHALER IH PRN (17:45)
[2018-10-27] MEDS: GuaiFENesin/D-METHORPHAN [SUGAR-FREE] 200-20MG/10 ML SYRUP UDCUP PO PRN (18:42)
[2018-10-27] MEDS: HALOPERIDOL 5 MG TABLET PO SCH (20:06)
[2018-10-27] MEDS: BENZTROPINE MESYLATE 0.5 MG TABLET PO SCH (21:00)
[2018-10-28] MEDS: GuaiFENesin/D-METHORPHAN [SUGAR-FREE] 200-20MG/10 ML SYRUP UDCUP PO PRN (02:04)
[2018-10-28 08:00] VITALS: BP 115/97
[2018-10-28 08:14] LABS: FREE T4 (FREE THYROXINE) 1.5 ng/dL (0.76-1.46); THYROID STIMULATING HORMONE 1.29 uIU/mL (0.36-3.74)
[2018-10-28] MEDS: BENZTROPINE MESYLATE 0.5 MG TABLET PO SCH ×2 (09:37→16:38)
[2018-10-28] MEDS: HALOPERIDOL 5 MG TABLET PO SCH ×2 (09:37→16:38)
[2018-10-28 16:00] VITALS: BP 138/76
[2018-10-28] MEDS: LORazepam 2 MG TABLET PO PRN (16:38)
[2018-10-28] MEDS: NICOTINE 21 MG/24 HOUR PATCH TD SCH (20:49)
[2018-10-29 06:21] VITALS: BP 125/80
[2018-10-29 08:26] VITALS: BP 139/78
[2018-10-29] MEDS: NICOTINE 21 MG/24 HOUR PATCH TD SCH (09:00)
[2018-10-29] MEDS: HALOPERIDOL 5 MG TABLET PO SCH ×2 (09:13→16:29)
[2018-10-29] MEDS: BENZTROPINE MESYLATE 0.5 MG TABLET PO SCH ×2 (09:13→16:29)
[2018-10-29] MEDS: LORazepam 2 MG TABLET PO PRN (16:29)
[2018-10-29 16:52] VITALS: BP 133/74
[2018-10-30 06:38] VITALS: BP 128/83
[2018-10-30] MEDS: BENZTROPINE MESYLATE 0.5 MG TABLET PO SCH ×2 (08:48→16:11)
[2018-10-30] MEDS: HALOPERIDOL 5 MG TABLET PO SCH ×2 (08:48→16:12)
[2018-10-30] MEDS: NICOTINE 21 MG/24 HOUR PATCH TD SCH (08:49)
[2018-10-30 10:37] VITALS: BP 107/67
[2018-10-30 16:00] VITALS: BP 113/78
[2018-10-30] MEDS: LORazepam 2 MG TABLET PO PRN (16:12)
[2018-10-31 06:44] VITALS: BP 118/82
[2018-10-31 08:25] VITALS: BP 107/70
[2018-10-31] MEDS: BENZTROPINE MESYLATE 0.5 MG TABLET PO SCH ×2 (09:12→16:39)
[2018-10-31] MEDS: HALOPERIDOL 5 MG TABLET PO SCH ×2 (09:12→16:39)
[2018-10-31] MEDS: NICOTINE 21 MG/24 HOUR PATCH TD SCH (09:13)
[2018-10-31 16:00] VITALS: BP 128/74
[2018-10-31] MEDS: LORazepam 2 MG TABLET PO PRN ×2 (16:39→20:40)
[2018-11-01 06:11] VITALS: BP 130/82
[2018-11-01 08:33] VITALS: BP 122/79
[2018-11-01] MEDS: BENZTROPINE MESYLATE 0.5 MG TABLET PO SCH ×2 (08:59→16:29)
[2018-11-01] MEDS: HALOPERIDOL 5 MG TABLET PO SCH ×2 (08:59→16:28)
[2018-11-01] MEDS: NICOTINE 21 MG/24 HOUR PATCH TD SCH (09:00)
[2018-11-01 16:00] VITALS: BP 114/77
[2018-11-01] MEDS: LORazepam 2 MG TABLET PO PRN (16:29)
[2018-11-02 03:00] VITALS: BP 107/77
[2018-11-02] MEDS: HALOPERIDOL 5 MG TABLET PO SCH (08:49)
[2018-11-02] MEDS: NICOTINE 21 MG/24 HOUR PATCH TD SCH (08:49)
[2018-11-02] MEDS: BENZTROPINE MESYLATE 0.5 MG TABLET PO SCH ×2 (08:49→16:26)
[2018-11-02 09:33] VITALS: BP 110/67
[2018-11-02 16:00] VITALS: BP 112/65
[2018-11-02] MEDS: LORazepam 2 MG TABLET PO PRN ×2 (16:26→20:31)
[2018-11-02] MEDS: HALOPERIDOL 10 MG TABLET PO SCH (16:26)
[2018-11-03 08:08] VITALS: BP 128/69
[2018-11-03] MEDS: NICOTINE 21 MG/24 HOUR PATCH TD SCH (08:49)
[2018-11-03] MEDS: HALOPERIDOL 10 MG TABLET PO SCH ×2 (08:50→16:17)
[2018-11-03] MEDS: BENZTROPINE MESYLATE 0.5 MG TABLET PO SCH ×2 (08:50→16:17)
[2018-11-03] MEDS: LORazepam 2 MG TABLET PO PRN ×2 (08:50→16:15)
[2018-11-03 16:00] VITALS: BP 118/65
[2018-11-04 03:35] VITALS: BP 111/77
[2018-11-04] MEDS: BENZTROPINE MESYLATE 0.5 MG TABLET PO SCH ×2 (08:56→16:02)
[2018-11-04] MEDS: HALOPERIDOL 10 MG TABLET PO SCH ×2 (08:57→16:02)
[2018-11-04] MEDS: NICOTINE 21 MG/24 HOUR PATCH TD SCH (08:58)
[2018-11-04 09:05] VITALS: BP 104/64
[2018-11-04] MEDS ORDERED: HALOPERIDOL DECANOATE 100 MG/ML VIAL IM SCH (10:30)
[2018-11-04 16:00] VITALS: BP 114/67
[2018-11-04] MEDS: LORazepam 2 MG TABLET PO PRN (16:02)
[2018-11-05 02:02] VITALS: BP 121/71
[2018-11-05 07:32] LABS: BAND NEUTROPHILS % (MANUAL) 0 % (0-5)
[2018-11-05 07:35] LABS: HEMATOCRIT 39.3 % (41-53); HEMOGLOBIN 12.8 g/dL (13.5-17.5); MEAN CORPUSCULAR HEMOGLOBIN 28.8 pg (26.0-34.0); MEAN CORPUSCULAR HGB CONC 32.6 G/dL (31.0-37.0); MEAN CORPUSCULAR VOLUME 88 fL (80-100); PLATELET COUNT (AUTO) 281 K/uL (150-450); RED BLOOD CELL COUNT(AUTO) 4.45 MIL/uL (4.50-5.90); RED CELL DISTRIBUTION WIDTH 15.9 % (11.5-14.5)
[2018-11-05 07:49] LABS: ANION GAP 9 mmol/L (8-16); CALCIUM, TOTAL 8.5 mg/dL (8.8-10.5); CARBON DIOXIDE 26 mmol/L (22-29); CHLORIDE 101 mmol/L (98-107); CREATININE 0.94 mg/dL (0.60-1.30); GLOMERULAR FILTR. RATE CALC > 60 mL/min (>60); GLUCOSE,RANDOM 89 mg/dL (70-110); PHOSPHORUS 3.6 mg/dL (2.5-4.9); POTASSIUM 3.6 mmol/L (3.5-5.1); SODIUM SERUM 136 mmol/L (136-145); UREA NITROGEN, BLOOD 13 mg/dL (7-18)
[2018-11-05 08:04] LABS: EOSINOPHILS % (MANUAL) 2 % (1-6); LYMPHOCYTES % (MANUAL) 21 % (22-44); MONOCYTES % (MANUAL) 3 % (2-9); SEGMENTED NEUTROPHILS % 74 % (40-70)
[2018-11-05 08:39] VITALS: BP 109/62
[2018-11-05] MEDS: NICOTINE 21 MG/24 HOUR PATCH TD SCH (08:40)
[2018-11-05] MEDS: BENZTROPINE MESYLATE 0.5 MG TABLET PO SCH (08:41)
[2018-11-05] MEDS: HALOPERIDOL 10 MG TABLET PO SCH (08:41)
[2018-11-05] MEDS: LORazepam 2 MG TABLET PO PRN (08:41)
[2018-11-05] MEDS ORDERED: OMEGA-3/DHA/EPA/FISH OIL 1,000 MG CAPSULE PO SCH (09:00)
[2018-11-05] MEDS ORDERED: HALO10 PO (10:32)
[2018-11-05] MEDS ORDERED: BENZ0.5T44 PO (10:32)
== END 2018-11-05 14:00 | disposition home or self-care (01) | DRG 885 ==
LOC: EMS 08:20 → B3A 10-28 00:12
PROVIDERS: ADMIT Psychiatry & Neurology Psychiatry; ATTEND Psychiatry & Neurology Psychiatry
DX: F25.0 Schizoaffective disorder, bipolar type (principal); R45.851 Suicidal ideations; F15.10 Other stimulant abuse, uncomplicated; R45.87 Impulsiveness; F41.9 Anxiety disorder, unspecified; E66.9 Obesity, unspecified; G47.00 Insomnia, unspecified; F17.200 Nicotine dependence, unspecified, uncomplicated; E55.9 Vitamin D deficiency, unspecified; K21.9 Gastro-esophageal reflux disease without esophagitis; F12.90 Cannabis use, unspecified, uncomplicated; D72.829 Elevated white blood cell count, unspecified; I10 Essential (primary) hypertension; Z71.6 Tobacco abuse counseling; Z91.14 Patient's other noncompliance with medication regimen
CPT/HCPCS: 83735; 84100; 84439; 84443; 85007; 87081; G0480; J1631

== ENCOUNTER 2018-11-19 21:12 | Inpatient (IN) | payer MEDICARE ==
[~2018-11-19] VITALS: Ht 180.3 cm; Wt 127.3 kg
[~2018-11-19 21:12] MED LIST changes: +BENZ0.5T44 PO; +HALO10 PO; -NALT50TA PO; -OLAN10TA22 PO
[2018-11-19 21:48] LABS: BASOPHILS % (AUTO) 0.2 % (0.0-2.0); HEMATOCRIT 41.3 % (41-53); HEMOGLOBIN 13.2 g/dL (13.5-17.5); LYMPHOCYTES # (AUTO) 1.9 K/uL (1.0-4.8); LYMPHOCYTES % (AUTO) 18.9 % (22.0-44.0); MEAN CORPUSCULAR HEMOGLOBIN 28.9 pg (26.0-34.0); MEAN CORPUSCULAR HGB CONC 32.1 G/dL (31.0-37.0); MEAN CORPUSCULAR VOLUME 90 fL (80-100); MONOCYTES # (AUTO) 0.9 K/uL (0.1-1.0); NEUTROPHILS # (AUTO) 6.7 K/uL (1.8-7.7); NEUTROPHILS % (AUTO) 67.9 % (40.0-70.0); PLATELET COUNT (AUTO) 342 K/uL (150-450); RED BLOOD CELL COUNT(AUTO) 4.58 MIL/uL (4.50-5.90); RED CELL DISTRIBUTION WIDTH 16.7 % (11.5-14.5)
[2018-11-19 22:07] LABS: ANION GAP 7 mmol/L (8-16); CARBON DIOXIDE 27 mmol/L (22-29); CHLORIDE 106 mmol/L (98-107); CREATININE 1.17 mg/dL (0.60-1.30); GLOMERULAR FILTR. RATE CALC > 60 mL/min (>60); GLUCOSE,RANDOM 110 mg/dL (70-110); POTASSIUM 3.5 mmol/L (3.5-5.1); SODIUM SERUM 140 mmol/L (136-145); UREA NITROGEN, BLOOD 7 mg/dL (7-18)
[2018-11-19 22:13] LABS: ALANINE AMINOTRANSFERASE 24 U/L (12-78); ALBUMIN 3.5 g/dL (3.4-5.0); ALKALINE PHOSPHATASE 89 U/L (46-116); ASPARTATE AMINOTRANSFERASE 28 U/L (15-37); BILIRUBIN,TOTAL 0.4 mg/dL (0.1-1.0); TOTAL PROTEIN, SERUM 7.1 g/dL (6.4-8.2)
[2018-11-19 23:30] LABS: AMPHET/METH SCREEN,URINE NEGATIVE (NEGATIVE); BARBITURATE SCREEN, URINE NEGATIVE (NEGATIVE); BENZODIAZEPINES SCREEN,URINE NEGATIVE (NEGATIVE); CANNABINOID SCREEN,URINE NEGATIVE (NEGATIVE); COCAINE SCREEN,URINE NEGATIVE (NEGATIVE); METHADONE SCREEN, URINE NEGATIVE (NEGATIVE); OPIATE SCREEN,URINE NEGATIVE (NEGATIVE)
[2018-11-19 23:34] LABS: PHENCYCLIDINE SCREEN,URINE NEGATIVE (NEGATIVE)
[2018-11-20] MEDS ORDERED: ZOLPIDEM TARTRATE 10 MG TABLET PO PRN (00:15)
[2018-11-20] MEDS ORDERED: HALOPERIDOL 5 MG TABLET PO PRN (00:15)
[2018-11-20 02:05] VITALS: BP 101/61
[2018-11-20] MEDS: HALOPERIDOL 5 MG TABLET PO SCH (16:05)
[2018-11-20] MEDS: LORazepam 2 MG TABLET PO PRN (16:05)
[2018-11-20] MEDS: BENZTROPINE MESYLATE 0.5 MG TABLET PO SCH (16:05)
[2018-11-20 16:22] VITALS: BP 112/58
[2018-11-20] MEDS: SERTRALINE HCL 50 MG TABLET PO SCH (20:51)
[2018-11-21 08:31] VITALS: BP 127/102
[2018-11-21] MEDS: HALOPERIDOL 5 MG TABLET PO SCH ×2 (09:50→17:03)
[2018-11-21] MEDS: BENZTROPINE MESYLATE 0.5 MG TABLET PO SCH ×2 (09:50→17:04)
[2018-11-21 16:00] VITALS: BP 137/76
[2018-11-21] MEDS: LORazepam 2 MG TABLET PO PRN (17:04)
[2018-11-21] MEDS: SERTRALINE HCL 50 MG TABLET PO SCH (21:31)
[2018-11-22 08:03] VITALS: BP 117/59
[2018-11-22] MEDS: BENZTROPINE MESYLATE 0.5 MG TABLET PO SCH ×2 (08:56→16:17)
[2018-11-22] MEDS: HALOPERIDOL 5 MG TABLET PO SCH ×2 (08:56→16:17)
[2018-11-22 16:00] VITALS: BP 120/80
[2018-11-22] MEDS: SERTRALINE HCL 50 MG TABLET PO SCH (20:24)
[2018-11-22] MEDS ORDERED: HALO5TAB2 PO (22:00)
[2018-11-22] MEDS ORDERED: SERT50TA12 PO (22:00)
[2018-11-22] MEDS ORDERED: BENZ0.5T44 PO (22:00)
[2018-11-23] MEDS: BENZTROPINE MESYLATE 0.5 MG TABLET PO SCH (08:27)
[2018-11-23] MEDS: HALOPERIDOL 5 MG TABLET PO SCH (08:27)
[2018-11-23 08:54] VITALS: BP 110/60
[2018-11-23] MEDS ORDERED: HALOPERIDOL DECANOATE 100 MG/ML VIAL IM ONE (09:00)
== END 2018-11-23 13:00 | disposition home or self-care (01) | DRG 885 ==
LOC: EMS 21:14 → B2X 11-20 00:01 → B3A 11-20 00:52
PROVIDERS: ADMIT Psychiatry & Neurology Psychiatry; ATTEND Psychiatry & Neurology Psychiatry
DX: F25.0 Schizoaffective disorder, bipolar type (principal); R45.851 Suicidal ideations; D72.829 Elevated white blood cell count, unspecified; E55.9 Vitamin D deficiency, unspecified; E66.9 Obesity, unspecified; F12.90 Cannabis use, unspecified, uncomplicated; Z71.51 Drug abuse counseling and surveillance of drug abuser; F15.10 Other stimulant abuse, uncomplicated; F17.200 Nicotine dependence, unspecified, uncomplicated; Z71.6 Tobacco abuse counseling; F41.9 Anxiety disorder, unspecified; G47.00 Insomnia, unspecified; I10 Essential (primary) hypertension; K21.9 Gastro-esophageal reflux disease without esophagitis; Z65.3 Problems related to other legal circumstances; Z91.14 Patient's other noncompliance with medication regimen; Z91.5 Personal history of self-harm; Z79.899 Other long term (current) drug therapy
CPT/HCPCS: G0480; J1631

== ENCOUNTER 2018-12-30 20:53 | Inpatient (IN) | payer MEDICARE ==
[~2018-12-30] VITALS: Ht 175.3 cm; Wt 117.9 kg
[~2018-12-30 20:53] MED LIST changes: -HALO10 PO; +HALO5TAB2 PO; +SERT50TA12 PO
[2018-12-30 21:42] LABS: BASOPHILS % (AUTO) 0.3 % (0.0-2.0); EOSINOPHILS % (AUTO) 1.9 % (1.0-6.0); HEMATOCRIT 42.8 % (41-53); LYMPHOCYTES # (AUTO) 1.9 K/uL (1.0-4.8); LYMPHOCYTES % (AUTO) 16.9 % (22.0-44.0); MEAN CORPUSCULAR HEMOGLOBIN 29.2 pg (26.0-34.0); MEAN CORPUSCULAR HGB CONC 32.8 G/dL (31.0-37.0); MEAN CORPUSCULAR VOLUME 89 fL (80-100); MONOCYTES # (AUTO) 0.9 K/uL (0.1-1.0); MONOCYTES % (AUTO) 7.4 % (2.0-9.0); NEUTROPHILS # (AUTO) 8.4 K/uL (1.8-7.7); NEUTROPHILS % (AUTO) 73.5 % (40.0-70.0); PLATELET COUNT (AUTO) 327 K/uL (150-450); RED BLOOD CELL COUNT(AUTO) 4.81 MIL/uL (4.50-5.90); RED CELL DISTRIBUTION WIDTH 14.9 % (11.5-14.5)
[2018-12-30 22:04] LABS: ANION GAP 10 mmol/L (8-16); CALCIUM, TOTAL 8.7 mg/dL (8.8-10.5); CARBON DIOXIDE 26 mmol/L (22-29); CHLORIDE 103 mmol/L (98-107); CREATININE 0.94 mg/dL (0.60-1.30); GLOMERULAR FILTR. RATE CALC > 60 mL/min (>60); GLUCOSE,RANDOM 102 mg/dL (70-110); POTASSIUM 3.7 mmol/L (3.5-5.1); SODIUM SERUM 139 mmol/L (136-145); UREA NITROGEN, BLOOD 10 mg/dL (7-18)
[2018-12-30 22:10] LABS: ALANINE AMINOTRANSFERASE 34 U/L (12-78); ALBUMIN 3.4 g/dL (3.4-5.0); ALKALINE PHOSPHATASE 100 U/L (46-116); ASPARTATE AMINOTRANSFERASE 20 U/L (15-37); BILIRUBIN,TOTAL 0.3 mg/dL (0.1-1.0); TOTAL PROTEIN, SERUM 7.4 g/dL (6.4-8.2)
[2018-12-30 22:47] LABS: AMPHET/METH SCREEN,URINE NEGATIVE (NEGATIVE); BARBITURATE SCREEN, URINE NEGATIVE (NEGATIVE); BENZODIAZEPINES SCREEN,URINE NEGATIVE (NEGATIVE); CANNABINOID SCREEN,URINE NEGATIVE (NEGATIVE); COCAINE SCREEN,URINE NEGATIVE (NEGATIVE); METHADONE SCREEN, URINE NEGATIVE (NEGATIVE); OPIATE SCREEN,URINE NEGATIVE (NEGATIVE)
[2018-12-30 22:48] LABS: PHENCYCLIDINE SCREEN,URINE NEGATIVE (NEGATIVE)
[2018-12-31] MEDS ORDERED: LORazepam 2 MG TABLET PO PRN (00:45)
[2018-12-31] MEDS ORDERED: ZOLPIDEM TARTRATE 10 MG TABLET PO PRN (00:45)
[2018-12-31] MEDS ORDERED: OLANZapine 5 MG RAPDIS TABLET PO PRN (00:45)
[2018-12-31 01:35] VITALS: BP 118/84
[2018-12-31] MEDS ORDERED: INFLUENZA VIRUS VACCINE QVS 2019-20 (3YR+)/PF 60 MCG/0.5 ML SYRINGE IM ONE (03:00)
[2018-12-31 08:05] VITALS: BP 119/67
[2018-12-31] MEDS ORDERED: CloNIDine HCL 0.1 MG TABLET PO PRN (09:30)
[2018-12-31] MEDS ORDERED: ALBUTEROL SULFATE HFA 90 MCG/PUFF 8 GM INHALER IH PRN (09:30)
[2018-12-31] MEDS ORDERED: MAG HYDROX/AL HYDROX/SIMETH ES 30 ML SUSPENSION UDCUP PO PRN ×2 (09:30→10:15)
[2018-12-31] MEDS ORDERED: PETROLATUM,WHITE 28 GM JELLY TP PRN (09:30)
[2018-12-31] MEDS ORDERED: NICOTINE 14 MG/24 HOUR PATCH TD PRN (09:30)
[2018-12-31] MEDS ORDERED: ACETAMINOPHEN 325 MG TABLET PO PRN ×2 (09:30→10:15)
[2018-12-31] MEDS ORDERED: GuaiFENesin/D-METHORPHAN [SUGAR-FREE] 200-20MG/10 ML SYRUP UDCUP PO PRN ×2 (09:30→10:15)
[2018-12-31] MEDS ORDERED: LOPERAMIDE HCL 2 MG CAPSULE PO PRN ×2 (09:30→10:15)
[2018-12-31] MEDS ORDERED: DOCUSATE SODIUM 100 MG CAPSULE PO PRN (09:30)
[2018-12-31] MEDS ORDERED: ONDANSETRON HCL 4 MG TABLET PO PRN (09:30)
[2018-12-31] MEDS ORDERED: IBUPROFEN 400 MG TABLET PO PRN (09:30)
[2018-12-31] MEDS ORDERED: MAGNESIUM HYDROXIDE SUSPENSION 30 ML UDCUP PO PRN ×2 (09:30→10:15)
[2018-12-31] MEDS ORDERED: HydrOXYzine PAMOATE 50 MG CAPSULE PO PRN (10:15)
[2018-12-31] MEDS ORDERED: HALOPERIDOL 5 MG TABLET PO PRN (10:15)
[2018-12-31] MEDS ORDERED: TUBERCULIN, PURIFIED PROTEIN DERIVATIVE 5 TU/0.1 ML SYRINGE ID ONE (10:15)
[2018-12-31] MEDS ORDERED: PROMETHAZINE HCL 25 MG TABLET PO PRN (10:15)
[2018-12-31] MEDS: THIAMINE HCL 100 MG TABLET PO SCH (16:58)
[2018-12-31 17:12] VITALS: BP 107/62
[2018-12-31] MEDS: HALOPERIDOL 10 MG TABLET PO SCH (21:08)
[2019-01-01 06:55] LABS: FREE T4 (FREE THYROXINE) 1.1 ng/dL (0.76-1.46); THYROID STIMULATING HORMONE 1.18 uIU/mL (0.36-3.74)
[2019-01-01 07:22] LABS: HEMOGLOBIN A1C 5.3 % (4.5-6.2)
[2019-01-01] MEDS: THIAMINE HCL 100 MG TABLET PO SCH ×2 (08:56→16:37)
[2019-01-01] MEDS: NALTREXONE HCL 50 MG TABLET PO SCH (08:56)
[2019-01-01] MEDS: FOLIC ACID 1 MG TABLET PO SCH (08:56)
[2019-01-01] MEDS: MULTIVITAMINS WITH MINERALS, THERAPEUTIC TABLET PO SCH (08:57)
[2019-01-01 09:14] VITALS: BP 97/62
[2019-01-01 18:00] VITALS: BP 102/64
[2019-01-01] MEDS: HALOPERIDOL 10 MG TABLET PO SCH (20:01)
[2019-01-02] MEDS: FOLIC ACID 1 MG TABLET PO SCH (08:30)
[2019-01-02] MEDS: THIAMINE HCL 100 MG TABLET PO SCH ×2 (08:30→16:17)
[2019-01-02] MEDS: NALTREXONE HCL 50 MG TABLET PO SCH (08:30)
[2019-01-02] MEDS: MULTIVITAMINS WITH MINERALS, THERAPEUTIC TABLET PO SCH (08:30)
[2019-01-02 10:09] VITALS: BP 141/99
[2019-01-02 17:00] VITALS: BP 120/78
[2019-01-02] MEDS ORDERED: HALOPERIDOL DECANOATE 50 MG/ML VIAL IM ONE (17:00)
[2019-01-02] MEDS: HALOPERIDOL 10 MG TABLET PO SCH (20:07)
[2019-01-03] MEDS: NALTREXONE HCL 50 MG TABLET PO SCH (08:22)
[2019-01-03] MEDS: FOLIC ACID 1 MG TABLET PO SCH (08:22)
[2019-01-03] MEDS: MULTIVITAMINS WITH MINERALS, THERAPEUTIC TABLET PO SCH (08:22)
[2019-01-03] MEDS: THIAMINE HCL 100 MG TABLET PO SCH ×2 (08:22→16:31)
[2019-01-03 09:35] VITALS: BP 117/71
[2019-01-03] MEDS: HALOPERIDOL 10 MG TABLET PO SCH (20:21)
[2019-01-04 00:30] VITALS: BP 105/85
[2019-01-04 08:57] VITALS: BP 137/93
[2019-01-04] MEDS: NALTREXONE HCL 50 MG TABLET PO SCH (08:57)
[2019-01-04] MEDS: THIAMINE HCL 100 MG TABLET PO SCH ×2 (08:57→17:40)
[2019-01-04] MEDS: FOLIC ACID 1 MG TABLET PO SCH (08:57)
[2019-01-04] MEDS: MULTIVITAMINS WITH MINERALS, THERAPEUTIC TABLET PO SCH (08:57)
[2019-01-04 17:11] VITALS: BP 127/93
[2019-01-04] MEDS: HALOPERIDOL 10 MG TABLET PO SCH (21:02)
[2019-01-05] MEDS: THIAMINE HCL 100 MG TABLET PO SCH ×2 (08:38→16:04)
[2019-01-05] MEDS: NALTREXONE HCL 50 MG TABLET PO SCH (08:38)
[2019-01-05] MEDS: MULTIVITAMINS WITH MINERALS, THERAPEUTIC TABLET PO SCH (08:38)
[2019-01-05] MEDS: FOLIC ACID 1 MG TABLET PO SCH (08:38)
[2019-01-05 13:09] VITALS: BP 109/63
[2019-01-05 16:00] VITALS: BP 112/64
[2019-01-05] MEDS: HALOPERIDOL 10 MG TABLET PO SCH (20:06)
[2019-01-06 08:00] VITALS: BP 121/79
[2019-01-06] MEDS: THIAMINE HCL 100 MG TABLET PO SCH ×2 (09:22→16:19)
[2019-01-06] MEDS: NALTREXONE HCL 50 MG TABLET PO SCH (09:22)
[2019-01-06] MEDS: FOLIC ACID 1 MG TABLET PO SCH (09:23)
[2019-01-06] MEDS: MULTIVITAMINS WITH MINERALS, THERAPEUTIC TABLET PO SCH (09:23)
[2019-01-06 17:09] VITALS: BP 102/66
[2019-01-06] MEDS: DIVALPROEX SODIUM 500 MG ER TABLET PO SCH (20:44)
[2019-01-06] MEDS: DiphenhydrAMINE HCL 25 MG CAPSULE PO SCH (20:45)
[2019-01-06] MEDS: HALOPERIDOL 10 MG TABLET PO SCH (20:45)
[2019-01-07 08:00] VITALS: BP 128/75
[2019-01-07] MEDS: MULTIVITAMINS WITH MINERALS, THERAPEUTIC TABLET PO SCH (09:12)
[2019-01-07] MEDS: NALTREXONE HCL 50 MG TABLET PO SCH (09:12)
[2019-01-07] MEDS: FOLIC ACID 1 MG TABLET PO SCH (09:12)
[2019-01-07] MEDS: THIAMINE HCL 100 MG TABLET PO SCH ×2 (09:13→16:45)
[2019-01-07 17:01] VITALS: BP 125/71
[2019-01-07] MEDS: DIVALPROEX SODIUM 500 MG ER TABLET PO SCH (20:49)
[2019-01-07] MEDS: HALOPERIDOL 10 MG TABLET PO SCH (20:49)
[2019-01-07] MEDS: DiphenhydrAMINE HCL 25 MG CAPSULE PO SCH (20:49)
[2019-01-08] MEDS: MULTIVITAMINS WITH MINERALS, THERAPEUTIC TABLET PO SCH (08:25)
[2019-01-08] MEDS: THIAMINE HCL 100 MG TABLET PO SCH ×2 (08:25→17:28)
[2019-01-08] MEDS: NALTREXONE HCL 50 MG TABLET PO SCH (08:25)
[2019-01-08] MEDS: FOLIC ACID 1 MG TABLET PO SCH (08:25)
[2019-01-08 09:27] VITALS: BP 128/79
[2019-01-08 16:00] VITALS: BP 108/68
[2019-01-08] MEDS: DiphenhydrAMINE HCL 25 MG CAPSULE PO SCH (20:33)
[2019-01-08] MEDS: HALOPERIDOL 10 MG TABLET PO SCH (20:33)
[2019-01-08] MEDS: DIVALPROEX SODIUM 500 MG ER TABLET PO SCH (20:34)
[2019-01-09 06:38] LABS: BASOPHILS % (AUTO) 0.3 % (0.0-2.0); EOSINOPHILS % (AUTO) 4.6 % (1.0-6.0); HEMATOCRIT 40.3 % (41-53); HEMOGLOBIN 13.6 g/dL (13.5-17.5); LYMPHOCYTES # (AUTO) 2.5 K/uL (1.0-4.8); LYMPHOCYTES % (AUTO) 25.9 % (22.0-44.0); MEAN CORPUSCULAR HEMOGLOBIN 29.7 pg (26.0-34.0); MEAN CORPUSCULAR HGB CONC 33.7 G/dL (31.0-37.0); MEAN CORPUSCULAR VOLUME 88 fL (80-100); MONOCYTES # (AUTO) 0.8 K/uL (0.1-1.0); NEUTROPHILS # (AUTO) 5.9 K/uL (1.8-7.7); NEUTROPHILS % (AUTO) 61.2 % (40.0-70.0); PLATELET COUNT (AUTO) 322 K/uL (150-450); RED BLOOD CELL COUNT(AUTO) 4.57 MIL/uL (4.50-5.90)
[2019-01-09 09:12] VITALS: BP 138/100
[2019-01-09] MEDS: MULTIVITAMINS WITH MINERALS, THERAPEUTIC TABLET PO SCH (09:12)
[2019-01-09] MEDS: NALTREXONE HCL 50 MG TABLET PO SCH (09:12)
[2019-01-09] MEDS: THIAMINE HCL 100 MG TABLET PO SCH ×2 (09:13→16:15)
[2019-01-09] MEDS: FOLIC ACID 1 MG TABLET PO SCH (09:13)
[2019-01-09 17:43] VITALS: BP 126/66
[2019-01-09] MEDS: HALOPERIDOL 10 MG TABLET PO SCH (21:17)
[2019-01-09] MEDS: DiphenhydrAMINE HCL 25 MG CAPSULE PO SCH (21:17)
[2019-01-09] MEDS: DIVALPROEX SODIUM 500 MG ER TABLET PO SCH (21:17)
[2019-01-10] MEDS: FOLIC ACID 1 MG TABLET PO SCH (09:02)
[2019-01-10] MEDS: THIAMINE HCL 100 MG TABLET PO SCH (09:04)
[2019-01-10] MEDS: MULTIVITAMINS WITH MINERALS, THERAPEUTIC TABLET PO SCH (09:04)
[2019-01-10] MEDS: NALTREXONE HCL 50 MG TABLET PO SCH (09:04)
[2019-01-10 10:08] VITALS: BP 146/99
[2019-01-10 17:05] VITALS: BP 133/91
[2019-01-10] MEDS: HALOPERIDOL 10 MG TABLET PO SCH (20:06)
[2019-01-10] MEDS: DiphenhydrAMINE HCL 25 MG CAPSULE PO SCH (20:06)
[2019-01-10] MEDS: DIVALPROEX SODIUM 500 MG ER TABLET PO SCH (20:06)
[2019-01-11 08:27] VITALS: BP 110/77
[2019-01-11] MEDS: NALTREXONE HCL 50 MG TABLET PO SCH (08:43)
[2019-01-11] MEDS: MULTIVITAMINS WITH MINERALS, THERAPEUTIC TABLET PO SCH (08:43)
[2019-01-11 16:30] VITALS: BP 112/84
[2019-01-11] MEDS: DIVALPROEX SODIUM 500 MG ER TABLET PO SCH (20:09)
[2019-01-11] MEDS: DiphenhydrAMINE HCL 25 MG CAPSULE PO SCH (20:10)
[2019-01-11] MEDS: HALOPERIDOL 10 MG TABLET PO SCH (20:10)
[2019-01-12 08:44] VITALS: BP 144/100
[2019-01-12] MEDS: MULTIVITAMINS WITH MINERALS, THERAPEUTIC TABLET PO SCH (09:05)
[2019-01-12] MEDS: NALTREXONE HCL 50 MG TABLET PO SCH (09:06)
[2019-01-12 16:50] VITALS: BP 106/82
[2019-01-12] MEDS: HALOPERIDOL 10 MG TABLET PO SCH (20:33)
[2019-01-12] MEDS: DIVALPROEX SODIUM 500 MG ER TABLET PO SCH (20:34)
[2019-01-12] MEDS: DiphenhydrAMINE HCL 25 MG CAPSULE PO SCH (20:34)
[2019-01-13] MEDS: MULTIVITAMINS WITH MINERALS, THERAPEUTIC TABLET PO SCH (08:24)
[2019-01-13] MEDS: NALTREXONE HCL 50 MG TABLET PO SCH (08:24)
[2019-01-13 09:38] VITALS: BP 101/58
[2019-01-13 16:56] VITALS: BP 120/76
[2019-01-13] MEDS: DiphenhydrAMINE HCL 25 MG CAPSULE PO SCH (20:48)
[2019-01-13] MEDS: HALOPERIDOL 10 MG TABLET PO SCH (20:48)
[2019-01-13] MEDS: DIVALPROEX SODIUM 500 MG ER TABLET PO SCH (20:48)
[2019-01-14 03:12] VITALS: BP 110/65
[2019-01-14 08:29] VITALS: BP 152/72
[2019-01-14] MEDS: NALTREXONE HCL 50 MG TABLET PO SCH (09:26)
[2019-01-14] MEDS: MULTIVITAMINS WITH MINERALS, THERAPEUTIC TABLET PO SCH (09:26)
[2019-01-14 16:00] VITALS: BP 142/94
[2019-01-14] MEDS: DIVALPROEX SODIUM 500 MG ER TABLET PO SCH (20:40)
[2019-01-14] MEDS: DiphenhydrAMINE HCL 25 MG CAPSULE PO SCH (20:40)
[2019-01-14] MEDS: HALOPERIDOL 10 MG TABLET PO SCH (20:40)
[2019-01-15 01:09] VITALS: BP 101/60
[2019-01-15 08:15] VITALS: BP 112/72
[2019-01-15] MEDS ORDERED: HALOPERIDOL DECANOATE 50 MG/ML VIAL IM SCH (09:00)
[2019-01-15] MEDS: NALTREXONE HCL 50 MG TABLET PO SCH (09:36)
[2019-01-15] MEDS: MULTIVITAMINS WITH MINERALS, THERAPEUTIC TABLET PO SCH (09:37)
[2019-01-15] MEDS ORDERED: HALO10 PO (12:39)
[2019-01-15] MEDS ORDERED: NALT50TA PO (12:39)
[2019-01-15] MEDS ORDERED: HALO50VI4 IM (12:39)
[2019-01-15] MEDS ORDERED: DIPH25 PO (12:39)
[2019-01-15] MEDS ORDERED: DIVA500T52 PO (12:39)
== END 2019-01-15 18:45 | disposition home or self-care (01) | DRG 885 ==
LOC: EMS 20:55 → 3EX 12-31 00:34
PROVIDERS: ADMIT Psychiatry & Neurology Psychiatry; ATTEND Psychiatry & Neurology Psychiatry
DX: F25.0 Schizoaffective disorder, bipolar type (principal); R45.851 Suicidal ideations; D64.9 Anemia, unspecified; D72.829 Elevated white blood cell count, unspecified; E11.9 Type 2 diabetes mellitus without complications; E66.9 Obesity, unspecified; F12.90 Cannabis use, unspecified, uncomplicated; F17.210 Nicotine dependence, cigarettes, uncomplicated; G47.00 Insomnia, unspecified; I10 Essential (primary) hypertension; J44.9 Chronic obstructive pulmonary disease, unspecified; Z68.39 Body mass index [BMI] 39.0-39.9, adult; Z91.14 Patient's other noncompliance with medication regimen
CPT/HCPCS: 80173; 83036; 84439; 84443; 87081; 93005; G0378; G0480; J1631

== ENCOUNTER 2019-07-26 18:06 | Emergency (ER) | payer OTHER, MEDICARE ==
[~2019-07-26] VITALS: Ht 170.2 cm; Wt 90.9 kg
[~2019-07-26 18:06] MED LIST changes: -BENZ0.5T44 PO; +DIPH25 PO; +DIVA500T52 PO; +HALO10 PO; +HALO50VI4 IM; -HALO5TAB2 PO; +NALT50TA PO; -SERT50TA12 PO
[2019-07-26 18:07] VITALS: BP 121/85
[2019-07-26] MEDS ORDERED: BENZ0.5T44 PO (18:15)
== END 2019-07-26 18:48 | disposition left against medical advice (07) ==
LOC: EMS 18:11
DX: G47.9 Sleep disorder, unspecified (principal); Z53.21 Procedure and treatment not carried out due to patient leaving prior to being seen by health care provider

== ENCOUNTER 2020-10-18 10:35 | Emergency (ER) | payer SELFPAY ==
[~2020-10-18] VITALS: Ht 170.2 cm; Wt 100.0 kg
[~2020-10-18 10:35] MED LIST changes: +BENZ0.5T44 PO; -DIPH25 PO; +DIVA-80 PO; -DIVA500T52 PO; -NALT50TA PO
[2020-10-18 11:25] LABS: BASOPHILS % (AUTO) 0.1 % (0.0-2.0); EOSINOPHILS % (AUTO) 0.5 % (1.0-6.0); HEMATOCRIT 40.1 % (41-53); HEMOGLOBIN 13.3 g/dL (13.5-17.5); LYMPHOCYTES # (AUTO) 1.2 K/uL (1.0-4.8); LYMPHOCYTES % (AUTO) 11.5 % (22.0-44.0); MEAN CORPUSCULAR HEMOGLOBIN 28.7 pg (26.0-34.0); MEAN CORPUSCULAR HGB CONC 33.1 G/dL (31.0-37.0); MEAN CORPUSCULAR VOLUME 87 fL (80-100); MONOCYTES # (AUTO) 1.1 K/uL (0.1-1.0); MONOCYTES % (AUTO) 10.4 % (2.0-9.0); NEUTROPHILS % (AUTO) 77.5 % (40.0-70.0); PLATELET COUNT (AUTO) 249 K/uL (150-450); RED BLOOD CELL COUNT(AUTO) 4.62 MIL/uL (4.50-5.90); RED CELL DISTRIBUTION WIDTH 14.7 % (11.5-14.5)
[2020-10-18 11:32] LABS: ANION GAP 9 mmol/L (8-16); CALCIUM, TOTAL 8.4 mg/dL (8.8-10.5); CARBON DIOXIDE 27 mmol/L (22-29); CHLORIDE 105 mmol/L (98-107); CREATININE 0.79 mg/dL (0.60-1.30); GLOMERULAR FILTR. RATE CALC > 60 mL/min (>60); GLUCOSE,RANDOM 117 mg/dL (70-110); POTASSIUM 3.3 mmol/L (3.5-5.1); SODIUM SERUM 141 mmol/L (136-145); UREA NITROGEN, BLOOD 10 mg/dL (7-18)
[2020-10-18 11:36] LABS: COVID AG,FIA SOURCE NASOPHARYNGEAL
[2020-10-18 11:44] LABS: ALANINE AMINOTRANSFERASE 35 U/L (12-78); ALBUMIN 3.3 g/dL (3.4-5.0); ALKALINE PHOSPHATASE 80 U/L (46-116); ASPARTATE AMINOTRANSFERASE 26 U/L (15-37); BILIRUBIN,TOTAL 0.4 mg/dL (0.1-1.0); HCG,QUANTITATIVE < 1 mIU/mL (0-6); VALPROIC ACID < 3 mcg/mL (50-100)
[2020-10-18 11:46] LABS: AMPHET/METH SCREEN,URINE POSITIVE (NEGATIVE); BARBITURATE SCREEN, URINE NEGATIVE (NEGATIVE); BENZODIAZEPINES SCREEN,URINE NEGATIVE (NEGATIVE); CANNABINOID SCREEN,URINE NEGATIVE (NEGATIVE); COCAINE SCREEN,URINE NEGATIVE (NEGATIVE); METHADONE SCREEN, URINE NEGATIVE (NEGATIVE); OPIATE SCREEN,URINE NEGATIVE (NEGATIVE)
[2020-10-18 11:47] LABS: PHENCYCLIDINE SCREEN,URINE NEGATIVE (NEGATIVE)
[2020-10-18 15:43] VITALS: BP 125/77
== END 2020-10-18 15:44 | disposition home or self-care (01) ==
LOC: EMS 10:37
DX: F25.9 Schizoaffective disorder, unspecified (principal); F15.10 Other stimulant abuse, uncomplicated; E11.9 Type 2 diabetes mellitus without complications; F32.9 Major depressive disorder, single episode, unspecified; I10 Essential (primary) hypertension; F17.210 Nicotine dependence, cigarettes, uncomplicated; Z20.822 Contact with and (suspected) exposure to COVID-19
CPT/HCPCS: 36415; 80053; 80164; 80307; 84702; 85025; 87426; 99285; G0480